=== PATIENT | female | born 1955 | race Caucasian/White ===

== ENCOUNTER 2020-01-10 11:25 | Emergency (ER) | payer MEDICARE, OTHER ==
[~2020-01-10] VITALS: Ht 170.2 cm; Wt 93.0 kg
[~2020-01-10 11:25] MED LIST: ALBU8.5H8 INH; AMLO10TA13 PO; DESV100T PO; DIVA-74 PO; FENO134C PO; OMEP40CA13 PO; ONDA8TAB6 PO; OXYB10TA4 PO; OXYGEN; PER10325T PO; RANI-366 PO; ZOLP5TAB8 PO
[2020-01-10 11:54] VITALS: BP 146/75
== END 2020-01-10 13:57 | disposition home or self-care (01) ==
LOC: ER 11:26
DX: M25.561 Pain in right knee (principal); E78.00 Pure hypercholesterolemia, unspecified; I10 Essential (primary) hypertension; J43.9 Emphysema, unspecified; G89.29 Other chronic pain; F41.9 Anxiety disorder, unspecified; F32.9 Major depressive disorder, single episode, unspecified; Z90.49 Acquired absence of other specified parts of digestive tract; Z90.710 Acquired absence of both cervix and uterus; Z88.0 Allergy status to penicillin; Z88.2 Allergy status to sulfonamides; Z88.8 Allergy status to other drugs, medicaments and biological substances; Z79.899 Other long term (current) drug therapy
CPT/HCPCS: 73564; 99284

== ENCOUNTER 2020-11-09 09:14 | Day surgery (SDC) | payer MEDICARE, MEDICAID ==
[2020-11-09] VITALS (8 sets, daily range): BP systolic 106–148; BP diastolic 70–103
[~2020-11-09] VITALS: Ht 170.2 cm; Wt 102.9 kg
[~2020-11-09 09:14] MED LIST changes: -ALBU8.5H8 INH; +AMIT25TA9 PO; -AMLO10TA13 PO; +BUPR1TAB45 PO; +CYCL-1 PO; -DESV100T PO; +DICL100G30 TOP; -DIVA-74 PO; -FENO134C PO; +FERR324T2 PO; +GABA300C PO; +KEN0.1O TOP; -ONDA8TAB6 PO; -OXYB10TA4 PO; -OXYGEN; -PER10325T PO; -RANI-366 PO; +TIOT4MIS3 PO; -ZOLP5TAB8 PO
[2020-11-09] MEDS ORDERED: albumin 25% 100mL bottle x 1 IV PRN (09:50)
[2020-11-09] MEDS ORDERED: POTA20PA40 PO (10:05)
[2020-11-09] MEDS ORDERED: HYDR-3972 PO (10:05)
[2020-11-09] MEDS ORDERED: ASPI-1265 PO (10:05)
[2020-11-09] MEDS ORDERED: PREG150C PO (10:05)
[2020-11-09] MEDS ORDERED: DULO-31 PO (10:05)
[2020-11-09] MEDS ORDERED: PANT-47 PO (10:05)
[2020-11-09] MEDS ORDERED: ROPI3TAB PO (10:05)
[2020-11-09] MEDS ORDERED: FURO-150 PO (10:05)
[2020-11-09] MEDS ORDERED: LYR75C PO (10:05)
[2020-11-09] MEDS ORDERED: LEVO50TA PO (10:05)
[2020-11-09] MEDS ORDERED: CYCL-1 PO (10:05)
[2020-11-09] MEDS ORDERED: PRED1TAB PO (10:05)
[2020-11-09 11:04] LABS: GLUCOSE,BODY FLUID 121 MG/DL; LDH,BODY FLUID 219 U/L; TOTAL PROTEIN,BODY FLUID 4.8 G/DL
[2020-11-09 11:19] LABS: BASOPHILS,BODY FLUID 1 %; LYMPHOCYTES,BODY FLUID 80 %; MONOCYTES,BODY FLUID 15 %; NEUTROPHILS,BODY FLUID 4 %
[2020-11-09 11:21] LABS: BF RBC COUNT 2350 /CU MM; BF WBC COUNT 1375 /CU MM (0-1000); BFAPPEAR CLOUDY; BFCOLOR YELLOW; BFVOLUME 60 ML
[2020-11-09] MEDS ORDERED: pneumococcal 23-VAL P-sac vacc 25 mcg/0.5ml vial IMVAC ONE (11:35)
== END 2020-11-09 12:45 | disposition home or self-care (01) ==
LOC: SSTAY O 09:14
PROVIDERS: ATTEND Radiology Vascular & Interventional Radiology
DX: J90 Pleural effusion, not elsewhere classified (principal); G89.29 Other chronic pain; J44.9 Chronic obstructive pulmonary disease, unspecified; I50.31 Acute diastolic (congestive) heart failure; E87.1 Hypo-osmolality and hyponatremia; Z87.440 Personal history of urinary (tract) infections; Z90.10 Acquired absence of unspecified breast and nipple; Z98.890 Other specified postprocedural states; F17.210 Nicotine dependence, cigarettes, uncomplicated; Z88.0 Allergy status to penicillin; Z88.5 Allergy status to narcotic agent; Z88.2 Allergy status to sulfonamides
CPT/HCPCS: 32555; 36415; 71045; 82945; 83615; 84157; 87070; 89051

== ENCOUNTER 2020-12-30 08:12 | Day surgery (SDC) | payer MEDICARE, MEDICAID ==
[~2020-12-30] VITALS: Ht 170.2 cm; Wt 103.1 kg
[~2020-12-30 08:12] MED LIST changes: -AMIT25TA9 PO; +ASPI-1265 PO; -BUPR1TAB45 PO; -DICL100G30 TOP; +DULO-31 PO; -FERR324T2 PO; +FURO-150 PO; -GABA300C PO; +HYDR-3972 PO; -KEN0.1O TOP; +LEVO50TA PO; +LYR75C PO; -OMEP40CA13 PO; +PANT-47 PO; +POTA20PA40 PO; +PRED1TAB PO; +PREG150C PO; +ROPI3TAB PO
[2020-12-30 08:50] VITALS: BP 99/59
[2020-12-30] MEDS ORDERED: albumin 25% 100mL bottle x 1 IV PRN (08:50)
[2020-12-30] MEDS ORDERED: ONDA8TAB13 PO (08:59)
[2020-12-30] MEDS ORDERED: ANAS1TAB24 PO (08:59)
[2020-12-30] MEDS ORDERED: ABEM100T PO (08:59)
[2020-12-30] MEDS ORDERED: DOCU100C42 PO (08:59)
[2020-12-30] MEDS ORDERED: CHOL20002 PO (08:59)
[2020-12-30 10:13] VITALS: BP_SYST 103
[2020-12-30 10:26] VITALS: BP 104/65
[2020-12-30 10:28] VITALS: BP 132/63
[2020-12-30 10:43] VITALS: BP 135/74
[2020-12-30 10:58] VITALS: BP 132/74
== END 2020-12-30 11:14 | disposition home or self-care (01) ==
LOC: SSTAY O 08:12
PROVIDERS: ATTEND Radiology Vascular & Interventional Radiology
DX: J90 Pleural effusion, not elsewhere classified (principal); J44.9 Chronic obstructive pulmonary disease, unspecified; G89.29 Other chronic pain; E87.1 Hypo-osmolality and hyponatremia; Z87.440 Personal history of urinary (tract) infections; I50.30 Unspecified diastolic (congestive) heart failure; Z88.0 Allergy status to penicillin; Z88.8 Allergy status to other drugs, medicaments and biological substances; Z88.5 Allergy status to narcotic agent; Z79.899 Other long term (current) drug therapy; Z79.82 Long term (current) use of aspirin; Z85.3 Personal history of malignant neoplasm of breast
CPT/HCPCS: 32555

== ENCOUNTER 2021-01-18 08:38 | Day surgery (SDC) | payer MEDICARE, MEDICAID ==
[2021-01-18] VITALS (8 sets, daily range): BP systolic 123–147; BP diastolic 59–81
[~2021-01-18] VITALS: Ht 170.2 cm; Wt 104.3 kg
[~2021-01-18 08:38] MED LIST changes: +ABEM100T PO; +ANAS1TAB24 PO; +CHOL20002 PO; +DOCU100C42 PO; +ONDA8TAB13 PO
[2021-01-18] MEDS ORDERED: albumin 25% 100mL bottle x 1 IV PRN (09:10)
== END 2021-01-18 10:45 | disposition home or self-care (01) ==
LOC: SSTAY O 08:38
PROVIDERS: ATTEND Radiology Vascular & Interventional Radiology
DX: J90 Pleural effusion, not elsewhere classified (principal); J44.9 Chronic obstructive pulmonary disease, unspecified; G89.29 Other chronic pain; I50.31 Acute diastolic (congestive) heart failure; E87.1 Hypo-osmolality and hyponatremia; F17.210 Nicotine dependence, cigarettes, uncomplicated; Z85.3 Personal history of malignant neoplasm of breast; Z87.440 Personal history of urinary (tract) infections; Z90.10 Acquired absence of unspecified breast and nipple; Z98.890 Other specified postprocedural states
CPT/HCPCS: 32555

== ENCOUNTER 2021-02-18 04:36 | Emergency (ER) | payer MEDICARE, MEDICAID ==
[~2021-02-18] VITALS: Ht 170.2 cm; Wt 105.0 kg
[2021-02-18] MEDS ORDERED: fentaNYL/PF 50MCG/1 ML 2ML syringe IV ONE ×2 (05:35→06:05)
[2021-02-18] MEDS ORDERED: morphine 4 MG/ML inj SYRINge IV ONE (06:40)
[2021-02-18] MEDS ORDERED: albuterol 2.5 MG/3 ML nebule NEB ONE (06:40)
[2021-02-18] MEDS ORDERED: propofol 1000mg/100ml bottle 100 ML IV PRN (06:55)
[2021-02-18 07:40] LABS: BASOPHILS # (AUTO) 0.1 X10'3 (0-0.2); BASOPHILS % (AUTO) 0.7 % (0-1); EOSINOPHILS # (AUTO) 0.1 X10'3 (0-0.9); EOSINOPHILS % (AUTO) 1.3 % (0-6); HEMATOCRIT 36.1 % (35.0-45.0); HEMOGLOBIN 11.5 g/dl (12.0-16.0); LYMPHOCYTES % (AUTO) 18.7 % (21-51); MEAN CORPUSCULAR HEMOGLOBIN 26.9 PG (27.0-31.0); MEAN CORPUSCULAR HGB CONC 31.8 g/dL (33.0-36.5); MEAN CORPUSCULAR VOLUME 84.3 FL (78-98); MEAN PLATELET VOLUME 7.7 FL (7.4-10.4); MONOCYTES # (AUTO) 0.5 X10'3 (0-0.9); MONOCYTES % (AUTO) 4.6 % (2-12); NEUTROPHILS % (AUTO) 74.7 % (42-75); PLATELET COUNT 275 X10'3 (140-440); RED BLOOD COUNT 4.28 X10'6 (4.20-5.60); RED CELL DISTRIBUTION WIDTH 22.3 % (11.5-14.5); WHITE BLOOD COUNT 10.7 X10'3 (4.5-11.0)
[2021-02-18 07:50] LABS: PARTIAL THROMBOPLASTIN TIME 26 SECONDS (22-32)
[2021-02-18 07:55] LABS: ALANINE AMINOTRANSFERASE 12 U/L (12-78); ALBUMIN 2.8 G/DL (3.4-5.0); ALBUMIN/GLOBULIN RATIO 0.6 (1.1-1.5); ALKALINE PHOSPHATASE 138 IU/L (46-116); ANION GAP 4 (8-16); ASPARTATE AMINO TRANSFERASE 12 U/L (10-37); BILIRUBIN,TOTAL 0.3 MG/DL (0.1-1.0); BLOOD UREA NITROGEN 11 MG/DL (7-18); BUN/CREATININE RATIO 11.1 (6.6-38.0); CALCIUM 8.9 MG/DL (8.5-10.1); CHLORIDE 101 MMOL/L (99-107); CREATININE 0.99 MG/DL (0.40-0.90); GLUCOSE 84 MG/DL (70-104); POTASSIUM 4.3 MMOL/L (3.5-5.1); SODIUM 141 MMOL/L (135-145); TOTAL CARBON DIOXIDE 36.1 MMOL/L (24-32); TOTAL PROTEIN 7.8 G/DL (6.4-8.2); eGFR 57 ML/MIN
[2021-02-18 08:59] LABS: ANISOCYTOSIS 3+; PLATELET ESTIMATE NORMAL; POLYCHROMASIA FEW; STOMATOCYTES 1+
--- NOTE | 2021-02-18 10:26 | NUR ---
pt back from ct
[2021-02-18 11:06] VITALS: BP 136/68
--- NOTE | 2021-02-18 12:05 | NUR ---
transport eta 15 minutes.
[2021-02-18] MEDS ORDERED: HYDROcodone/acetaminophen 10/325mg tab PO ONE (12:25)
== END 2021-02-18 12:44 | disposition home or self-care (01) ==
LOC: ER 04:37
DX: S82.851A Displaced trimalleolar fracture of right lower leg, initial encounter for closed fracture (principal); Z20.822 Contact with and (suspected) exposure to COVID-19; M25.571 Pain in right ankle and joints of right foot; I11.0 Hypertensive heart disease with heart failure; I50.9 Heart failure, unspecified; E78.00 Pure hypercholesterolemia, unspecified; J43.9 Emphysema, unspecified; G89.29 Other chronic pain; F41.9 Anxiety disorder, unspecified; F17.200 Nicotine dependence, unspecified, uncomplicated; Z86.2 Personal history of diseases of the blood and blood-forming organs and certain disorders involving the immune mechanism; Z87.440 Personal history of urinary (tract) infections; Z85.9 Personal history of malignant neoplasm, unspecified; Z90.49 Acquired absence of other specified parts of digestive tract; Z90.710 Acquired absence of both cervix and uterus; Z88.0 Allergy status to penicillin; Z88.5 Allergy status to narcotic agent; Z88.1 Allergy status to other antibiotic agents; Z88.8 Allergy status to other drugs, medicaments and biological substances; Z79.82 Long term (current) use of aspirin; Z79.899 Other long term (current) drug therapy; X58.XXXA Exposure to other specified factors, initial encounter; Y93.89 Activity, other specified; Y92.89 Other specified places as the place of occurrence of the external cause; Y99.8 Other external cause status
CPT/HCPCS: 27818; 36415; 71045; 73600; 73610; 73700; 80053; 85008; 85025; 85610; 85730; 87635; 93005; 94640; 94799; 96374; 96375; 96376; 99152; 99285; C9803; J2270; J3010; 94760

== ENCOUNTER 2021-02-21 09:56 | Inpatient (IN) | payer MEDICARE, MEDICAID ==
[~2021-02-21] VITALS: Ht 170.2 cm; Wt 106.8 kg
[2021-02-21 12:05] LABS: BASOPHILS # (AUTO) 0.1 X10'3 (0-0.2); BASOPHILS % (AUTO) 0.7 % (0-1); EOSINOPHILS # (AUTO) 0.2 X10'3 (0-0.9); HEMATOCRIT 30.4 % (35.0-45.0); HEMOGLOBIN 9.6 g/dl (12.0-16.0); LYMPHOCYTES # (AUTO) 1.9 X10'3 (1.1-4.8); LYMPHOCYTES % (AUTO) 23.7 % (21-51); MEAN CORPUSCULAR HEMOGLOBIN 27.4 PG (27.0-31.0); MEAN CORPUSCULAR HGB CONC 31.6 g/dL (33.0-36.5); MEAN CORPUSCULAR VOLUME 86.5 FL (78-98); MEAN PLATELET VOLUME 7.8 FL (7.4-10.4); MONOCYTES # (AUTO) 0.6 X10'3 (0-0.9); MONOCYTES % (AUTO) 7.7 % (2-12); NEUTROPHILS # (AUTO) 5.4 X10'3 (1.8-7.7); NEUTROPHILS % (AUTO) 65.9 % (42-75); PLATELET COUNT 253 X10'3 (140-440); RED BLOOD COUNT 3.52 X10'6 (4.20-5.60); RED CELL DISTRIBUTION WIDTH 21.1 % (11.5-14.5); WHITE BLOOD COUNT 8.2 X10'3 (4.5-11.0)
[2021-02-21 12:20] LABS: ALANINE AMINOTRANSFERASE 8 U/L (12-78); ALBUMIN 2.3 G/DL (3.4-5.0); ALBUMIN/GLOBULIN RATIO 0.5 (1.1-1.5); ALKALINE PHOSPHATASE 103 IU/L (46-116); ANION GAP 3 (8-16); ASPARTATE AMINO TRANSFERASE 11 U/L (10-37); BILIRUBIN,TOTAL 0.3 MG/DL (0.1-1.0); BLOOD UREA NITROGEN 11 MG/DL (7-18); BUN/CREATININE RATIO 11.1 (6.6-38.0); CALCIUM 8.3 MG/DL (8.5-10.1); CHLORIDE 98 MMOL/L (99-107); CREATININE 0.99 MG/DL (0.40-0.90); GLUCOSE 79 MG/DL (70-104); SODIUM 140 MMOL/L (135-145); TOTAL CARBON DIOXIDE 38.6 MMOL/L (24-32); TOTAL PROTEIN 7.1 G/DL (6.4-8.2); eGFR 57 ML/MIN
[2021-02-21 12:39] LABS: ANISOCYTOSIS 3+; HYPOCHROMASIA 1+; PLATELET ESTIMATE NORMAL; POLYCHROMASIA FEW; STOMATOCYTES 1+
[2021-02-21] MEDS ORDERED: potassium Cl 20 mEq SR tablet PO PRN ×2 (12:55)
[2021-02-21] MEDS ORDERED: magnesium 4gm in 100ml NS 100 ML IV PRN (12:55)
[2021-02-21] MEDS ORDERED: HYDROcodone/acetaminophen 5mg/325mg tablet PO PRN (12:55)
[2021-02-21] MEDS ORDERED: magnesium 2GM in 50ml NS 50 ML IV PRN (12:55)
[2021-02-21] MEDS ORDERED: ondansetron/PF 4mg/2ml inj IV PRN (12:55)
[2021-02-21] MEDS ORDERED: potassium Cl 40MEQ/1/2NS 520ml 520 ML IV PRN ×2 (12:55)
[2021-02-21] MEDS ORDERED: acetaminophen 325mg tablet PO PRN (12:55)
[2021-02-21] MEDS ORDERED: FLUT100D IH (13:21)
[2021-02-21] MEDS ORDERED: NICO-687 TOP (13:21)
[2021-02-21] MEDS ORDERED: ALBU17AE26 IH (13:21)
[2021-02-21] MEDS ORDERED: non-formulary drug (Ondansetron (Ondansetron Odt) 1 TAB) PO PRN (14:40)
[2021-02-21] MEDS: ipratropium/albuterol 3ml nebule NEB PRN (15:10)
[2021-02-21] MEDS: HYDROcodone/acetaminophen 10/325mg tab PO PRN (15:58)
--- NOTE | 2021-02-21 16:30 | NUR ---
Pt placed on hospital bed.
--- NOTE | 2021-02-21 18:56 | NUR ---
pt ate her meal. Pt c/o muscle spasms in legs. pt Had oxygen off upon RN arrival at 85% and now oxygen on and 95 % with 4LNC. Room tidied.
[2021-02-21] MEDS: cyclobenzaprine 10mg tablet PO PRN (19:02)
--- NOTE | 2021-02-21 19:52 | NUR ---
Received report from ASSISTANT PROGRAM MANAGERRAFY Hou and Halley. Pt. to follow shortly.
[2021-02-21] MEDS: K and/or MAG REPLACEMENT MC SCH (20:00)
[2021-02-21] MEDS: enoxaparin 40mg/0.4ml syringe SQ SCH (20:00)
[2021-02-21] MEDS ORDERED: ABEMACICLIB 100 MG PO SCH (20:00)
--- NOTE | 2021-02-21 20:00 | NUR ---
Patient arrived to floor via hospital bed from ER department. A&Ox4 and in no apparent distress at this time. Patient situated in room and VS taken
[2021-02-21 20:10] VITALS: BP 148/76
[2021-02-21] MEDS: albuterol 2.5 MG/3 ML nebule NEB PRN (20:30)
[2021-02-21] MEDS: budesonide 0.5mg/2ml UD nebule IH SCH (20:30)
[2021-02-21 22:00] VITALS: BP 120/53
--- NOTE | 2021-02-21 22:00 | NUR ---
Patient advised that her sister will be bringing in her cancer drugs in the morning for her.
[2021-02-21] MEDS: cholecalciferol (vitamin D3) 1,000 unit (25mcg) tablet PO SCH (22:03)
[2021-02-21] MEDS: pregabalin 75mg capsule PO SCH (22:03)
[2021-02-21] MEDS: ROPINIRole 1mg tablet PO SCH (22:03)
[2021-02-21] MEDS: furosemide 20MG tablet PO SCH (22:06)
[2021-02-21] MEDS: HYDROmorphone inj. 0.5 MG/0.5 ML DISP.SYRIN IV PRN (22:17)
[2021-02-22] VITALS (18 sets, daily range): BP systolic 99–173; BP diastolic 50–98
[2021-02-22] MEDS: cyclobenzaprine 10mg tablet PO PRN ×2 (00:19→22:06)
[2021-02-22] MEDS: HYDROcodone/acetaminophen 10/325mg tab PO PRN ×4 (00:19→21:50)
--- NOTE | 2021-02-22 00:39 | NUR ---
Patient c/o bladder distension. Bladder scan reveals >921. New order for perez catheter to be placed.
--- NOTE | 2021-02-22 01:11 | NUR ---
Johnson cath placed and immediately started draining 1150 cc yellow urine. Patient tolerated procedure well.
[2021-02-22] MEDS: mag hydrox/Alum hydrox/simeth 30ml oral suspension PO PRN (03:50)
[2021-02-22 06:11] LABS: BASOPHILS # (AUTO) 0.1 X10'3 (0-0.2); BASOPHILS % (AUTO) 0.9 % (0-1); EOSINOPHILS # (AUTO) 0.1 X10'3 (0-0.9); EOSINOPHILS % (AUTO) 1.5 % (0-6); HEMATOCRIT 31.7 % (35.0-45.0); HEMOGLOBIN 10.3 g/dl (12.0-16.0); LYMPHOCYTES # (AUTO) 1.1 X10'3 (1.1-4.8); LYMPHOCYTES % (AUTO) 13.3 % (21-51); MEAN CORPUSCULAR HGB CONC 32.4 g/dL (33.0-36.5); MEAN CORPUSCULAR VOLUME 86.5 FL (78-98); MONOCYTES # (AUTO) 0.6 X10'3 (0-0.9); MONOCYTES % (AUTO) 6.9 % (2-12); NEUTROPHILS # (AUTO) 6.5 X10'3 (1.8-7.7); NEUTROPHILS % (AUTO) 77.4 % (42-75); PLATELET COUNT 242 X10'3 (140-440); RED BLOOD COUNT 3.66 X10'6 (4.20-5.60); RED CELL DISTRIBUTION WIDTH 21.3 % (11.5-14.5); WHITE BLOOD COUNT 8.3 X10'3 (4.5-11.0)
[2021-02-22 06:30] LABS: ALANINE AMINOTRANSFERASE 11 U/L (12-78); ALBUMIN 2.4 G/DL (3.4-5.0); ALBUMIN/GLOBULIN RATIO 0.5 (1.1-1.5); ALKALINE PHOSPHATASE 120 IU/L (46-116); ANION GAP 7 (8-16); ASPARTATE AMINO TRANSFERASE 13 U/L (10-37); BILIRUBIN,TOTAL 0.4 MG/DL (0.1-1.0); BLOOD UREA NITROGEN 10 MG/DL (7-18); BUN/CREATININE RATIO 9.9 (6.6-38.0); CHLORIDE 101 MMOL/L (99-107); CREATININE 1.01 MG/DL (0.40-0.90); GLUCOSE 110 MG/DL (70-104); MAGNESIUM 1.7 MG/DL (1.5-2.4); SODIUM 142 MMOL/L (135-145); TOTAL PROTEIN 7.5 G/DL (6.4-8.2); eGFR 55 ML/MIN
--- NOTE | 2021-02-22 06:30 | NUR ---
Patient in room TEA 354A. I have received report from RAFY MICHAEL and had the opportunity to ask questions and assume patient care.
[2021-02-22] MEDS: ipratropium/albuterol 3ml nebule NEB PRN (07:29)
[2021-02-22] MEDS: budesonide 0.5mg/2ml UD nebule IH SCH ×2 (07:29→19:17)
[2021-02-22] MEDS ORDERED: pregabalin 75mg capsule PO SCH (08:00)
[2021-02-22] MEDS ORDERED: STIOLTO RESPIMAT INHAL PO SCH (08:00)
[2021-02-22] MEDS: K and/or MAG REPLACEMENT MC SCH ×2 (08:00→20:00)
[2021-02-22] MEDS: duloxetine 30mg CAPSULE.DR PO SCH (09:51)
[2021-02-22] MEDS: aspirin 81mg tab.chew PO SCH (09:51)
[2021-02-22] MEDS: levoTHYROXINE 25mcg tablet PO SCH (09:51)
[2021-02-22] MEDS: furosemide 20MG tablet PO SCH ×2 (09:52→21:43)
[2021-02-22] MEDS ORDERED: pneumococcal 23-VAL P-sac vacc 25 mcg/0.5ml vial IMVAC ONE (10:00)
[2021-02-22] MEDS: predniSONE 1 mg tablet PO SCH (10:01)
[2021-02-22] MEDS: cholecalciferol (vitamin D3) 1,000 unit (25mcg) tablet PO SCH ×2 (10:02→21:43)
[2021-02-22] MEDS: pantoprazole 40mg Tablet.DR PO SCH (10:02)
[2021-02-22] MEDS: nicotine 14mg patch - 24hr TD SCH (10:02)
[2021-02-22] MEDS: anastrozole 1 MG tablet PO SCH (10:03)
[2021-02-22] MEDS ORDERED: enalaprilat dihydrate 2.5mg/2ml vial IV PRN (14:35)
[2021-02-22] MEDS ORDERED: hydrALAZINE 20mg/ml inj. IV PRN (14:35)
[2021-02-22] MEDS ORDERED: HYDROmorphone/PF 0.2 MG/ML SYRINGE IV PRN ×4 (14:35→17:15)
[2021-02-22] MEDS ORDERED: ondansetron/PF 4mg/2ml inj IV PRN ×2 (14:35→17:15)
[2021-02-22] MEDS ORDERED: fentaNYL/PF 50MCG/1 ML 2ML syringe IV PRN ×2 (14:35)
[2021-02-22] MEDS ORDERED: ringers solution, lacted 1,000 ML IV SCH ×2 (14:35→17:15)
[2021-02-22] MEDS ORDERED: ROPIVAcaine 0.5% (5mg/ml) 30ml vial ONE ×2 (14:37)
[2021-02-22] MEDS ORDERED: etomidate 2mg/ml inj. ONE (14:37)
[2021-02-22] MEDS ORDERED: succinylcholine 20mg/ml inj IV ONE (14:37)
[2021-02-22] MEDS ORDERED: cloNIDine hcl/PF 100mcg/ml inj ONE (15:35)
[2021-02-22] MEDS ORDERED: sevoflurane 250ml liquid IH ONE (15:40)
[2021-02-22] MEDS ORDERED: midazolam 1 mg/ML 2ml injection ONE (15:41)
[2021-02-22] MEDS ORDERED: fentaNYL/PF 50MCG/1 ML 2ML syringe ONE (15:41)
[2021-02-22] MEDS ORDERED: BUPIVAcaine 0.5% inj/PF 30 ML ONE (16:50)
[2021-02-22] MEDS ORDERED: vancomycin 1,000mg inj ONE ×2 (16:57)
[2021-02-22] MEDS ORDERED: labetalol 20mg/4ml (5mg/ml) syringe IV PRN (17:15)
[2021-02-22] MEDS ORDERED: meperidine/PF 25mg/ml syringe IV PRN (17:15)
--- NOTE | 2021-02-22 17:45 | NUR ---
Received from OR via BED, accompanied by Anesthesiologist DR BAUTISTA and report given by Anesthesiologist. PT DROWSY, SOMEWHAT CONFUSED, PT NOT SURE OF WHERE SHE IS, RIGHT ANKLE W/JOHANNA WRAP COVERING DRSG/SPLINT, TOES PWD, CHEF KITCHEN MANAGER 1-2 SECONDS. PANDEY CATHETER TO GRAVITY DRAINAGE. PT W/SHIVERS AND C/O PAIN TO LEFT FOOT, 25 MG DEMEROL GIVEN FOR BOTH W/IMPROVEMENT IN PAIN AND SHIVERS. PAGED RT FOR BREATHING TX. Addendum: 02/22/21 at 2027 by Juany Qureshi RN Amended: Links added.
--- NOTE | 2021-02-22 18:34 | NUR ---
Patient in room TEA 354. I have received report from Radha HILLMAN and had the opportunity to ask questions and assume patient care.
--- NOTE | 2021-02-22 18:34 | NUR ---
Problems reprioritized. Patient report given, questions answered & plan of care reviewed with RAFY HOANG.
[2021-02-22] MEDS: albuterol 2.5 MG/3 ML nebule NEB PRN (19:17)
--- NOTE | 2021-02-22 19:45 | NUR ---
Report called to receiving nurse. Transferred via BED ON , 5 RINGS FROM OR IN PTS CHART PLACED ON PTS FINGERS AFTER TAKING PT TO ROOM 354A, 2 EARRINGS PLACED IN PTS PURSE AT BEDSIDE, RECEIVING RN AT BEDSIDE, BLL, CALL LIGHT GIVEN, SIDE RAILS UP X 2. Special Issues communicated to receiving nurse. Addendum: 02/22/21 at 2031 by Juany Qureshi RN Amended: Links added.
[2021-02-22] MEDS: enoxaparin 40mg/0.4ml syringe SQ SCH (21:42)
[2021-02-22] MEDS: ROPINIRole 1mg tablet PO SCH (21:43)
[2021-02-22] MEDS: pregabalin 75mg capsule PO SCH (21:44)
[2021-02-22] MEDS: ABEMACICLIB 100 MG PO SCH (22:06)
[2021-02-23] VITALS (11 sets, daily range): BP systolic 107–151; BP diastolic 52–77
[2021-02-23] MEDS: HYDROmorphone inj. 0.5 MG/0.5 ML DISP.SYRIN IV PRN ×3 (01:05→19:16)
[2021-02-23] MEDS: HYDROcodone/acetaminophen 10/325mg tab PO PRN ×2 (05:25→10:12)
[2021-02-23] MEDS: ABEMACICLIB 100 MG PO SCH ×2 (05:26→17:00)
--- NOTE | 2021-02-23 07:04 | NUR ---
Patient in room TEA 354. I have received report from RAFY Clark and had the opportunity to ask questions and assume patient care.
--- NOTE | 2021-02-23 07:34 | NUR ---
Problems reprioritized. Patient report given, questions answered & plan of care reviewed with Cassandra HILLMAN.
[2021-02-23] MEDS: albuterol 2.5 MG/3 ML nebule NEB PRN (07:39)
[2021-02-23] MEDS: budesonide 0.5mg/2ml UD nebule IH SCH ×2 (07:39→20:00)
[2021-02-23] MEDS: K and/or MAG REPLACEMENT MC SCH ×2 (08:00→21:14)
[2021-02-23 08:20] LABS: BASOPHILS % (AUTO) 0.6 % (0-1); EOSINOPHILS # (AUTO) 0.1 X10'3 (0-0.9); EOSINOPHILS % (AUTO) 1.2 % (0-6); HEMATOCRIT 28.8 % (35.0-45.0); HEMOGLOBIN 9.2 g/dl (12.0-16.0); LYMPHOCYTES # (AUTO) 1.1 X10'3 (1.1-4.8); LYMPHOCYTES % (AUTO) 14.4 % (21-51); MEAN CORPUSCULAR HEMOGLOBIN 27.2 PG (27.0-31.0); MEAN CORPUSCULAR HGB CONC 31.8 g/dL (33.0-36.5); MEAN CORPUSCULAR VOLUME 85.7 FL (78-98); MEAN PLATELET VOLUME 7.9 FL (7.4-10.4); MONOCYTES # (AUTO) 0.5 X10'3 (0-0.9); MONOCYTES % (AUTO) 6.5 % (2-12); NEUTROPHILS # (AUTO) 5.9 X10'3 (1.8-7.7); NEUTROPHILS % (AUTO) 77.3 % (42-75); PLATELET COUNT 241 X10'3 (140-440); RED BLOOD COUNT 3.37 X10'6 (4.20-5.60); RED CELL DISTRIBUTION WIDTH 21.8 % (11.5-14.5); WHITE BLOOD COUNT 7.6 X10'3 (4.5-11.0)
[2021-02-23] MEDS: levoTHYROXINE 25mcg tablet PO SCH (08:35)
[2021-02-23] MEDS: aspirin 81mg tab.chew PO SCH (08:35)
[2021-02-23] MEDS: furosemide 20MG tablet PO SCH ×2 (08:35→21:13)
[2021-02-23] MEDS: duloxetine 30mg CAPSULE.DR PO SCH (08:35)
[2021-02-23] MEDS: pantoprazole 40mg Tablet.DR PO SCH (08:35)
[2021-02-23] MEDS: predniSONE 1 mg tablet PO SCH (08:35)
[2021-02-23] MEDS: nicotine 14mg patch - 24hr TD SCH (08:36)
[2021-02-23] MEDS: cholecalciferol (vitamin D3) 1,000 unit (25mcg) tablet PO SCH ×2 (08:36→21:12)
[2021-02-23] MEDS: anastrozole 1 MG tablet PO SCH (08:40)
[2021-02-23 09:02] LABS: ALANINE AMINOTRANSFERASE 8 U/L (12-78); ALBUMIN 2.2 G/DL (3.4-5.0); ALBUMIN/GLOBULIN RATIO 0.5 (1.1-1.5); ALKALINE PHOSPHATASE 101 IU/L (46-116); ANION GAP 2 (8-16); ASPARTATE AMINO TRANSFERASE 19 U/L (10-37); BILIRUBIN,TOTAL 0.4 MG/DL (0.1-1.0); BLOOD UREA NITROGEN 10 MG/DL (7-18); BUN/CREATININE RATIO 9.9 (6.6-38.0); CALCIUM 8.1 MG/DL (8.5-10.1); CHLORIDE 100 MMOL/L (99-107); CREATININE 1.01 MG/DL (0.40-0.90); GLUCOSE 128 MG/DL (70-104); MAGNESIUM 1.6 MG/DL (1.5-2.4); POTASSIUM 3.5 MMOL/L (3.5-5.1); SODIUM 141 MMOL/L (135-145); TOTAL CARBON DIOXIDE 38.8 MMOL/L (24-32); eGFR 55 ML/MIN
[2021-02-23 10:04] LABS: PLATELET ESTIMATE NORMAL
[2021-02-23 10:05] LABS: ANISOCYTOSIS 3+
[2021-02-23 10:07] LABS: HYPOCHROMASIA 1+; STOMATOCYTES 2+
[2021-02-23] MEDS ORDERED: HYDROcodone/acetaminophen 10/325mg tab PO PRN (13:45)
[2021-02-23] MEDS ORDERED: loperamide 2mg capsule PO PRN (13:45)
[2021-02-23] MEDS ORDERED: loperamide 2mg capsule PO ONE (13:45)
[2021-02-23] MEDS ORDERED: oxyCODONE IR 5mg (immed. release) tablet PO ONE (13:50)
[2021-02-23] MEDS ORDERED: oxyCODONE IR 5mg (immed. release) tablet PO PRN (13:50)
--- NOTE | 2021-02-23 18:32 | NUR ---
Problems reprioritized. Patient report given, questions answered & plan of care reviewed with RAFY Lynn.
--- NOTE | 2021-02-23 18:50 | NUR ---
Problems reprioritized. Patient report given, questions answered & plan of care reviewed with Fay RN.
--- NOTE | 2021-02-23 19:30 | NUR ---
pt denies SOB; unable to lie flat; states this is her norm Addendum: 02/24/21 at 0311 by Juliana Beltran RN Amended: Links added.
[2021-02-23] MEDS: ROPINIRole 1mg tablet PO SCH (21:11)
[2021-02-23] MEDS: pregabalin 75mg capsule PO SCH (21:12)
[2021-02-23] MEDS: enoxaparin 40mg/0.4ml syringe SQ SCH (21:14)
[2021-02-23] MEDS: oxyCODONE IR 5mg (immed. release) tablet PO PRN (21:17)
[2021-02-24] VITALS: BP 134/58
[2021-02-24] MEDS: cyclobenzaprine 10mg tablet PO PRN ×4 (00:46→19:40)
[2021-02-24] MEDS: HYDROmorphone inj. 0.5 MG/0.5 ML DISP.SYRIN IV PRN (01:53)
[2021-02-24] MEDS: ABEMACICLIB 100 MG PO SCH ×2 (06:11→17:14)
--- NOTE | 2021-02-24 06:39 | NUR ---
Patient in room TEA 354. I have received report from RAFY Aponte and had the opportunity to ask questions and assume patient care.
--- NOTE | 2021-02-24 06:40 | NUR ---
Patient in room TEA 354. I have received report from RAFY Lynn and had the opportunity to ask questions and assume patient care.
[2021-02-24 07:00] VITALS: BP 123/39
[2021-02-24] MEDS ORDERED: IPRA3AMP9 NEB (07:27)
[2021-02-24] MEDS: K and/or MAG REPLACEMENT MC SCH ×2 (08:00→20:00)
[2021-02-24 08:04] LABS: BASOPHILS % (AUTO) 0.4 % (0-1); EOSINOPHILS # (AUTO) 0.1 X10'3 (0-0.9); EOSINOPHILS % (AUTO) 1.3 % (0-6); HEMATOCRIT 30.3 % (35.0-45.0); HEMOGLOBIN 9.8 g/dl (12.0-16.0); LYMPHOCYTES # (AUTO) 1.3 X10'3 (1.1-4.8); LYMPHOCYTES % (AUTO) 16.5 % (21-51); MEAN CORPUSCULAR HEMOGLOBIN 27.7 PG (27.0-31.0); MEAN CORPUSCULAR HGB CONC 32.3 g/dL (33.0-36.5); MEAN CORPUSCULAR VOLUME 85.9 FL (78-98); MEAN PLATELET VOLUME 8.1 FL (7.4-10.4); MONOCYTES # (AUTO) 0.6 X10'3 (0-0.9); MONOCYTES % (AUTO) 7.5 % (2-12); NEUTROPHILS # (AUTO) 5.8 X10'3 (1.8-7.7); NEUTROPHILS % (AUTO) 74.3 % (42-75); PLATELET COUNT 240 X10'3 (140-440); RED BLOOD COUNT 3.52 X10'6 (4.20-5.60); RED CELL DISTRIBUTION WIDTH 21.2 % (11.5-14.5); WHITE BLOOD COUNT 7.8 X10'3 (4.5-11.0)
[2021-02-24] MEDS: budesonide 0.5mg/2ml UD nebule IH SCH ×2 (08:14→21:38)
[2021-02-24] MEDS: albuterol 2.5 MG/3 ML nebule NEB PRN ×4 (08:15→21:38)
[2021-02-24] MEDS: predniSONE 1 mg tablet PO SCH (08:29)
[2021-02-24] MEDS: cholecalciferol (vitamin D3) 1,000 unit (25mcg) tablet PO SCH ×2 (08:29→19:40)
[2021-02-24] MEDS: oxyCODONE IR 5mg (immed. release) tablet PO PRN ×4 (08:29→22:59)
[2021-02-24] MEDS: levoTHYROXINE 25mcg tablet PO SCH (08:29)
[2021-02-24] MEDS: pantoprazole 40mg Tablet.DR PO SCH (08:29)
[2021-02-24] MEDS: furosemide 20MG tablet PO SCH ×2 (08:29→19:40)
[2021-02-24] MEDS: duloxetine 30mg CAPSULE.DR PO SCH (08:29)
[2021-02-24] MEDS: aspirin 81mg tab.chew PO SCH (08:30)
[2021-02-24] MEDS: nicotine 14mg patch - 24hr TD SCH (08:30)
[2021-02-24 08:32] LABS: ALANINE AMINOTRANSFERASE 14 U/L (12-78); ALBUMIN 2.4 G/DL (3.4-5.0); ALBUMIN/GLOBULIN RATIO 0.5 (1.1-1.5); ALKALINE PHOSPHATASE 116 IU/L (46-116); ANION GAP 4 (8-16); ASPARTATE AMINO TRANSFERASE 19 U/L (10-37); BILIRUBIN,TOTAL 0.4 MG/DL (0.1-1.0); BLOOD UREA NITROGEN 7 MG/DL (7-18); BUN/CREATININE RATIO 8.3 (6.6-38.0); CALCIUM 8.8 MG/DL (8.5-10.1); CHLORIDE 100 MMOL/L (99-107); CREATININE 0.84 MG/DL (0.40-0.90); GLUCOSE 95 MG/DL (70-104); MAGNESIUM 1.8 MG/DL (1.5-2.4); SODIUM 142 MMOL/L (135-145); TOTAL CARBON DIOXIDE 37.6 MMOL/L (24-32); TOTAL PROTEIN 7.4 G/DL (6.4-8.2); eGFR 68 ML/MIN
[2021-02-24] MEDS: anastrozole 1 MG tablet PO SCH (08:32)
[2021-02-24] MEDS ORDERED: pneumococcal 23-VAL P-sac vacc 25 mcg/0.5ml vial IMVAC ONE (10:00)
[2021-02-24 11:00] VITALS: BP 101/45
[2021-02-24 13:25] VITALS: BP 130/60
[2021-02-24 13:40] VITALS: BP 125/66
[2021-02-24] MEDS ORDERED: potassium Cl 20 mEq SR tablet PO PRN (13:40)
[2021-02-24 14:04] LABS: BFSOURCE RIGHT PLEURAL FLD
[2021-02-24] MEDS: potassium Cl 20 mEq SR tablet PO PRN ×2 (14:18→20:18)
[2021-02-24 15:28] LABS: GLUCOSE,BODY FLUID 103 MG/DL; LDH,BODY FLUID 145 U/L; TOTAL PROTEIN,BODY FLUID 4.1 G/DL
[2021-02-24 15:29] LABS: BFAPPEAR CLOUDY; BFCOLOR RED; LYMPHOCYTES,BODY FLUID 86 %; MONOCYTES,BODY FLUID 5 %; NEUTROPHILS,BODY FLUID 9 %
[2021-02-24 15:31] LABS: BF RBC COUNT 6625 /CU MM; BF WBC COUNT 61 /CU MM (0-1000); BFVOLUME 58 ML
[2021-02-24 17:20] LABS: ANISOCYTOSIS 3+; HYPOCHROMASIA 1+; LARGE PLATELETS FEW; PLATELET ESTIMATE NORMAL; POLYCHROMASIA 1+; ROULEAUX 1+
--- NOTE | 2021-02-24 18:32 | NUR ---
Patient in room TEA 360. I have received report from Cassandra HILLMAN and had the opportunity to ask questions and assume patient care.
[2021-02-24] MEDS: enoxaparin 40mg/0.4ml syringe SQ SCH (19:41)
--- NOTE | 2021-02-24 19:50 | NUR ---
Pt reports missing lower denture last seen by her last night. Pt says she wrapped it in tissue like at home. Room trash and bedding searched without finding it. Kitchen was notified to watch for it on trays.
[2021-02-24] MEDS: ROPINIRole 1mg tablet PO SCH (20:13)
[2021-02-24] MEDS: pregabalin 75mg capsule PO SCH (20:14)
[2021-02-25] VITALS: BP 127/53
[2021-02-25] MEDS: oxyCODONE IR 5mg (immed. release) tablet PO PRN ×4 (05:03→20:27)
[2021-02-25] MEDS: anastrozole 1 MG tablet PO SCH (05:04)
[2021-02-25] MEDS: ABEMACICLIB 100 MG PO SCH ×2 (05:15→16:27)
--- NOTE | 2021-02-25 05:32 | NUR ---
patient requested both chemo drugs at ths time checked with pharmacy ok to gve. patient appears stable at this time.medicated for pain 03/01.
--- NOTE | 2021-02-25 06:13 | NUR ---
Problems reprioritized. Patient report given, questions answered & plan of care reviewed with Shell HILLMAN.
--- NOTE | 2021-02-25 06:38 | NUR ---
Patient in room TEA 360. I have received report from Suzanne HILLMAN and had the opportunity to ask questions and assume patient care.
[2021-02-25 06:50] LABS: BASOPHILS % (AUTO) 0.7 % (0-1); EOSINOPHILS # (AUTO) 0.1 X10'3 (0-0.9); EOSINOPHILS % (AUTO) 1.7 % (0-6); HEMATOCRIT 29.7 % (35.0-45.0); HEMOGLOBIN 9.4 g/dl (12.0-16.0); LYMPHOCYTES # (AUTO) 1.4 X10'3 (1.1-4.8); LYMPHOCYTES % (AUTO) 19.1 % (21-51); MEAN CORPUSCULAR HEMOGLOBIN 27.4 PG (27.0-31.0); MEAN CORPUSCULAR HGB CONC 31.6 g/dL (33.0-36.5); MEAN CORPUSCULAR VOLUME 86.5 FL (78-98); MEAN PLATELET VOLUME 7.8 FL (7.4-10.4); MONOCYTES # (AUTO) 0.6 X10'3 (0-0.9); MONOCYTES % (AUTO) 8.5 % (2-12); PLATELET COUNT 266 X10'3 (140-440); RED BLOOD COUNT 3.43 X10'6 (4.20-5.60); RED CELL DISTRIBUTION WIDTH 20.9 % (11.5-14.5); WHITE BLOOD COUNT 7.1 X10'3 (4.5-11.0)
[2021-02-25 07:00] VITALS: BP 128/58
[2021-02-25 07:18] LABS: ALANINE AMINOTRANSFERASE 11 U/L (12-78); ALBUMIN 2.2 G/DL (3.4-5.0); ALBUMIN/GLOBULIN RATIO 0.4 (1.1-1.5); ALKALINE PHOSPHATASE 105 IU/L (46-116); ANION GAP 4 (8-16); ASPARTATE AMINO TRANSFERASE 15 U/L (10-37); BILIRUBIN,TOTAL 0.4 MG/DL (0.1-1.0); BLOOD UREA NITROGEN 10 MG/DL (7-18); BUN/CREATININE RATIO 10.6 (6.6-38.0); CALCIUM 9.1 MG/DL (8.5-10.1); CHLORIDE 102 MMOL/L (99-107); CREATININE 0.94 MG/DL (0.40-0.90); GLUCOSE 108 MG/DL (70-104); MAGNESIUM 1.9 MG/DL (1.5-2.4); POTASSIUM 4.6 MMOL/L (3.5-5.1); SODIUM 143 MMOL/L (135-145); TOTAL CARBON DIOXIDE 36.6 MMOL/L (24-32); TOTAL PROTEIN 7.3 G/DL (6.4-8.2); eGFR 60 ML/MIN
[2021-02-25] MEDS: K and/or MAG REPLACEMENT MC SCH ×2 (08:00→20:00)
[2021-02-25] MEDS: furosemide 20MG tablet PO SCH ×2 (08:07→19:37)
[2021-02-25] MEDS: cholecalciferol (vitamin D3) 1,000 unit (25mcg) tablet PO SCH ×2 (08:07→19:37)
[2021-02-25] MEDS: levoTHYROXINE 25mcg tablet PO SCH (08:07)
[2021-02-25] MEDS: nicotine 14mg patch - 24hr TD SCH (08:08)
[2021-02-25] MEDS: aspirin 81mg tab.chew PO SCH (08:08)
[2021-02-25] MEDS: duloxetine 30mg CAPSULE.DR PO SCH (08:08)
[2021-02-25] MEDS: pantoprazole 40mg Tablet.DR PO SCH (08:08)
[2021-02-25] MEDS: cyclobenzaprine 10mg tablet PO PRN ×2 (08:08→19:37)
[2021-02-25] MEDS: predniSONE 1 mg tablet PO SCH (08:08)
[2021-02-25] MEDS: albuterol 2.5 MG/3 ML nebule NEB PRN ×3 (08:19→18:37)
[2021-02-25] MEDS: budesonide 0.5mg/2ml UD nebule IH SCH ×2 (08:19→18:37)
[2021-02-25 11:00] VITALS: BP 111/58
--- NOTE | 2021-02-25 13:41 | NUR ---
PAGER ID: [phone] MESSAGE: Shanell Jensen 360A-Pt's called and stated Oncologist wanted some testing done here for pt since is actively on chemo. Please call dr Sharita Dexter oncologist [phone].The called rosalva canseco [phone].Thank you. Shell
[2021-02-25 18:00] VITALS: BP 110/48
--- NOTE | 2021-02-25 18:36 | NUR ---
Problems reprioritized. Patient report given, questions answered & plan of care reviewed with Deidre Jiang RN.
[2021-02-25] MEDS: enoxaparin 40mg/0.4ml syringe SQ SCH (19:38)
[2021-02-25] MEDS: ROPINIRole 1mg tablet PO SCH (20:24)
[2021-02-25] MEDS: pregabalin 75mg capsule PO SCH (20:25)
[2021-02-26] VITALS: BP 117/50
[2021-02-26] MEDS: ipratropium/albuterol 3ml nebule NEB PRN ×3 (03:54→19:43)
[2021-02-26] MEDS: oxyCODONE IR 5mg (immed. release) tablet PO PRN ×4 (04:02→18:57)
[2021-02-26] MEDS: ABEMACICLIB 100 MG PO SCH ×2 (05:00→17:54)
[2021-02-26 05:39] LABS: BASOPHILS # (AUTO) 0.1 X10'3 (0-0.2); BASOPHILS % (AUTO) 1.1 % (0-1); EOSINOPHILS # (AUTO) 0.1 X10'3 (0-0.9); EOSINOPHILS % (AUTO) 1.7 % (0-6); HEMOGLOBIN 9.6 g/dl (12.0-16.0); LYMPHOCYTES # (AUTO) 1.7 X10'3 (1.1-4.8); LYMPHOCYTES % (AUTO) 20.7 % (21-51); MEAN CORPUSCULAR HEMOGLOBIN 27.8 PG (27.0-31.0); MEAN CORPUSCULAR HGB CONC 32.2 g/dL (33.0-36.5); MEAN CORPUSCULAR VOLUME 86.3 FL (78-98); MEAN PLATELET VOLUME 8.2 FL (7.4-10.4); MONOCYTES # (AUTO) 0.6 X10'3 (0-0.9); MONOCYTES % (AUTO) 7.8 % (2-12); NEUTROPHILS # (AUTO) 5.6 X10'3 (1.8-7.7); NEUTROPHILS % (AUTO) 68.7 % (42-75); PLATELET COUNT 286 X10'3 (140-440); RED BLOOD COUNT 3.47 X10'6 (4.20-5.60); WHITE BLOOD COUNT 8.1 X10'3 (4.5-11.0)
[2021-02-26 05:47] LABS: ALANINE AMINOTRANSFERASE 12 U/L (12-78); ALBUMIN 2.3 G/DL (3.4-5.0); ALBUMIN/GLOBULIN RATIO 0.5 (1.1-1.5); ALKALINE PHOSPHATASE 107 IU/L (46-116); ANION GAP 6 (8-16); ASPARTATE AMINO TRANSFERASE 17 U/L (10-37); BILIRUBIN,TOTAL 0.4 MG/DL (0.1-1.0); BLOOD UREA NITROGEN 12 MG/DL (7-18); BUN/CREATININE RATIO 11.7 (6.6-38.0); CALCIUM 9.4 MG/DL (8.5-10.1); CHLORIDE 98 MMOL/L (99-107); CREATININE 1.03 MG/DL (0.40-0.90); GLUCOSE 104 MG/DL (70-104); MAGNESIUM 1.9 MG/DL (1.5-2.4); SODIUM 139 MMOL/L (135-145); TOTAL CARBON DIOXIDE 34.9 MMOL/L (24-32); TOTAL PROTEIN 7.4 G/DL (6.4-8.2); eGFR 54 ML/MIN
[2021-02-26 06:30] LABS: ANISOCYTOSIS 3+; MICROCYTOSIS 1+; PLATELET ESTIMATE NORMAL; STOMATOCYTES 1+
--- NOTE | 2021-02-26 06:30 | NUR ---
Problems reprioritized. Patient report given, questions answered & plan of care reviewed with TREMAINE HILLMAN.
[2021-02-26] MEDS: K and/or MAG REPLACEMENT MC SCH ×2 (08:00→20:00)
[2021-02-26] MEDS: budesonide 0.5mg/2ml UD nebule IH SCH ×2 (08:00→19:43)
[2021-02-26 08:45] VITALS: BP 112/55
[2021-02-26] MEDS: duloxetine 30mg CAPSULE.DR PO SCH (10:00)
[2021-02-26] MEDS: predniSONE 1 mg tablet PO SCH (10:00)
[2021-02-26] MEDS: aspirin 81mg tab.chew PO SCH (10:01)
[2021-02-26] MEDS: cholecalciferol (vitamin D3) 1,000 unit (25mcg) tablet PO SCH ×2 (10:02→20:21)
[2021-02-26] MEDS: furosemide 20MG tablet PO SCH ×2 (10:02→20:21)
[2021-02-26] MEDS: docusate sod 100mg capsule PO PRN (10:02)
[2021-02-26] MEDS: pantoprazole 40mg Tablet.DR PO SCH (10:03)
[2021-02-26] MEDS: nicotine 14mg patch - 24hr TD SCH (10:03)
[2021-02-26] MEDS: levoTHYROXINE 25mcg tablet PO SCH (10:03)
[2021-02-26] MEDS: anastrozole 1 MG tablet PO SCH (10:05)
--- NOTE | 2021-02-26 10:54 | NUR ---
Initial: Pt admit for fall with right foot and ankle fracture. Pt POD #4 s/p ORIF. Pt on a heart healthy diet initially with 100% PO intake which decreased to average 25% PO intake, however appears to be improving with 50% PO intake 8/6 at breakfast and lunch, up to 75% PO intake at dinner 8/6. Pending documentation of PO intake for today. LBM 8/ documented as a smear. Per EMR pt declined PRN Colace today. D/w dietary to send prunes and prune juice to assist with bowel regularity. Will continue to follow closely and monitor need for further nutrition intervention pending additional trends in PO intake. Recommendations: 1) Continue heart healthy diet 2) Monitor need for ONS/additional protein 3) Routine bowel care 4) Weekly scaled weights Addendum: 02/26/21 at [address] Amended: Links added.
[2021-02-26 12:04] VITALS: BP 117/49
[2021-02-26] MEDS: mag hydrox/Alum hydrox/simeth 30ml oral suspension PO PRN (17:43)
[2021-02-26 20:00] VITALS: BP 113/51
[2021-02-26] MEDS: cyclobenzaprine 10mg tablet PO PRN (20:21)
[2021-02-26] MEDS: ROPINIRole 1mg tablet PO SCH (20:21)
[2021-02-26] MEDS: pregabalin 75mg capsule PO SCH (20:21)
[2021-02-26] MEDS: enoxaparin 40mg/0.4ml syringe SQ SCH (20:22)
[2021-02-27] VITALS: BP 144/65
[2021-02-27] MEDS: oxyCODONE IR 5mg (immed. release) tablet PO PRN ×4 (05:59→21:03)
[2021-02-27] MEDS: anastrozole 1 MG tablet PO SCH (06:00)
[2021-02-27] MEDS: ABEMACICLIB 100 MG PO SCH ×2 (06:01→17:41)
--- NOTE | 2021-02-27 06:30 | NUR ---
Problems reprioritized. Patient report given, questions answered & plan of care reviewed with NOLAN HILLMAN.
--- NOTE | 2021-02-27 06:49 | NUR ---
Patient in room TEA 360. I have received report from Leah HILLMAN and had the opportunity to ask questions and assume patient care.
[2021-02-27 07:00] VITALS: BP 107/64
[2021-02-27] MEDS: budesonide 0.5mg/2ml UD nebule IH SCH ×2 (07:00→19:30)
[2021-02-27] MEDS: ipratropium/albuterol 3ml nebule NEB PRN (07:00)
[2021-02-27] MEDS: K and/or MAG REPLACEMENT MC SCH ×2 (08:00→20:00)
[2021-02-27] MEDS: levoTHYROXINE 25mcg tablet PO SCH (08:51)
[2021-02-27] MEDS: aspirin 81mg tab.chew PO SCH (08:51)
[2021-02-27] MEDS: predniSONE 1 mg tablet PO SCH (08:51)
[2021-02-27] MEDS: pantoprazole 40mg Tablet.DR PO SCH (08:51)
[2021-02-27] MEDS: cholecalciferol (vitamin D3) 1,000 unit (25mcg) tablet PO SCH ×2 (08:51→21:04)
[2021-02-27] MEDS: furosemide 20MG tablet PO SCH ×2 (08:51→21:05)
[2021-02-27] MEDS: duloxetine 30mg CAPSULE.DR PO SCH (08:51)
[2021-02-27] MEDS: nicotine 14mg patch - 24hr TD SCH (08:53)
[2021-02-27 11:00] VITALS: BP 122/60
[2021-02-27 11:35] LABS: ALBUMIN 2.5 G/DL (3.4-5.0); ANION GAP 8 (8-16); BLOOD UREA NITROGEN 10 MG/DL (7-18); BUN/CREATININE RATIO 9.3 (6.6-38.0); CALCIUM 9.4 MG/DL (8.5-10.1); CHLORIDE 97 MMOL/L (99-107); CREATININE 1.07 MG/DL (0.40-0.90); GLUCOSE 94 MG/DL (70-104); POTASSIUM 3.7 MMOL/L (3.5-5.1); SODIUM 141 MMOL/L (135-145); TOTAL CARBON DIOXIDE 35.9 MMOL/L (24-32); eGFR 52 ML/MIN
[2021-02-27] MEDS: albuterol 2.5 MG/3 ML nebule NEB PRN ×2 (12:19→19:29)
[2021-02-27] MEDS: cyclobenzaprine 10mg tablet PO PRN (17:41)
--- NOTE | 2021-02-27 18:35 | NUR ---
Patient in room TEA 360. I have received report from Kameron HILLMAN and had the opportunity to ask questions and assume patient care.
[2021-02-27 19:55] VITALS: BP 118/61
[2021-02-27] MEDS: ROPINIRole 1mg tablet PO SCH (21:04)
[2021-02-27] MEDS: pregabalin 75mg capsule PO SCH (21:05)
[2021-02-27] MEDS: enoxaparin 40mg/0.4ml syringe SQ SCH (21:08)
[2021-02-27] MEDS: Melatonin 3mg tablet PO SCH (21:10)
--- NOTE | 2021-02-27 21:21 | NUR ---
patient seen by DR Paiz, melatonin prescribed for HS as sleep aide. medicated q4hrs for pain 8/10 in right ankle. Flexeril also given for muscle spasms. with effect. patient worked with PT see note. . All cares given. report given to Mela HILLMAN
[2021-02-28] VITALS: BP 113/64
[2021-02-28] MEDS: cyclobenzaprine 10mg tablet PO PRN ×3 (05:09→18:29)
[2021-02-28] MEDS: ABEMACICLIB 100 MG PO SCH ×2 (05:10→18:29)
[2021-02-28] MEDS: anastrozole 1 MG tablet PO SCH (05:10)
[2021-02-28] MEDS: oxyCODONE IR 5mg (immed. release) tablet PO PRN ×3 (05:10→18:29)
--- NOTE | 2021-02-28 06:16 | NUR ---
Patient in room TEA 360. I have received report from Mela HILLMAN and had the opportunity to ask questions and assume patient care.
[2021-02-28] MEDS: K and/or MAG REPLACEMENT MC SCH ×2 (08:00→20:00)
[2021-02-28] MEDS: budesonide 0.5mg/2ml UD nebule IH SCH ×2 (08:14→19:36)
[2021-02-28] MEDS: albuterol 2.5 MG/3 ML nebule NEB PRN (08:14)
[2021-02-28] MEDS: predniSONE 1 mg tablet PO SCH (08:26)
[2021-02-28] MEDS: cholecalciferol (vitamin D3) 1,000 unit (25mcg) tablet PO SCH ×2 (08:26→20:21)
[2021-02-28] MEDS: aspirin 81mg tab.chew PO SCH (08:26)
[2021-02-28] MEDS: duloxetine 30mg CAPSULE.DR PO SCH (08:26)
[2021-02-28] MEDS: levoTHYROXINE 25mcg tablet PO SCH (08:26)
[2021-02-28] MEDS: furosemide 20MG tablet PO SCH ×2 (08:26→20:21)
[2021-02-28] MEDS: pantoprazole 40mg Tablet.DR PO SCH (08:26)
[2021-02-28] MEDS: nicotine 14mg patch - 24hr TD SCH (08:28)
[2021-02-28 08:47] VITALS: BP 109/61
[2021-02-28 11:00] VITALS: BP 103/56
[2021-02-28 18:00] VITALS: BP 119/50
[2021-02-28] MEDS: ipratropium/albuterol 3ml nebule NEB PRN (19:36)
[2021-02-28] MEDS: ROPINIRole 1mg tablet PO SCH (20:21)
[2021-02-28] MEDS: pregabalin 75mg capsule PO SCH (20:22)
[2021-02-28] MEDS: Melatonin 3mg tablet PO SCH (20:22)
[2021-02-28] MEDS: enoxaparin 40mg/0.4ml syringe SQ SCH (20:22)
[2021-02-28 23:55] VITALS: BP 133/62
[2021-03-01] MEDS: oxyCODONE IR 5mg (immed. release) tablet PO PRN ×4 (01:03→19:22)
[2021-03-01] MEDS: anastrozole 1 MG tablet PO SCH (04:52)
[2021-03-01] MEDS: ABEMACICLIB 100 MG PO SCH ×2 (04:52→16:47)
[2021-03-01] MEDS: cyclobenzaprine 10mg tablet PO PRN ×3 (04:53→19:22)
--- NOTE | 2021-03-01 06:38 | NUR ---
Problems reprioritized. Patient report given, questions answered & plan of care reviewed with Cassandra HILLMAN.
--- NOTE | 2021-03-01 06:51 | NUR ---
Patient in room TEA 360. I have received report from RAFY Goff and had the opportunity to ask questions and assume patient care.
[2021-03-01] MEDS: budesonide 0.5mg/2ml UD nebule IH SCH ×2 (06:53→19:47)
[2021-03-01] MEDS: albuterol 2.5 MG/3 ML nebule NEB PRN ×2 (06:53→19:47)
[2021-03-01 07:00] VITALS: BP 82/55
[2021-03-01] MEDS: K and/or MAG REPLACEMENT MC SCH ×2 (08:00→20:00)
[2021-03-01] MEDS: predniSONE 1 mg tablet PO SCH (08:06)
[2021-03-01] MEDS: pantoprazole 40mg Tablet.DR PO SCH (08:06)
[2021-03-01] MEDS: furosemide 20MG tablet PO SCH ×2 (08:06→19:22)
[2021-03-01] MEDS: aspirin 81mg tab.chew PO SCH (08:06)
[2021-03-01] MEDS: cholecalciferol (vitamin D3) 1,000 unit (25mcg) tablet PO SCH ×2 (08:06→19:22)
[2021-03-01] MEDS: levoTHYROXINE 25mcg tablet PO SCH (08:06)
[2021-03-01] MEDS: nicotine 14mg patch - 24hr TD SCH (08:06)
[2021-03-01] MEDS: duloxetine 30mg CAPSULE.DR PO SCH (08:06)
[2021-03-01 12:00] VITALS: BP 105/54
--- NOTE | 2021-03-01 12:18 | NUR ---
Reassessment: Pt PO intake has improved, avg 56% of meals which meets 79% of est energy needs and 91% of est protein needs. Pt still complains of R ankle pain. LBM 8/ w/ only smears noted daily, pt continues to refuse PRN colace per EMR. Will continue to monitor PO trends. Recommendations: 1) Continue heart healthy diet 2) Monitor need for ONS/additional protein 3) Routine bowel care 4) Weekly scaled weights Addendum: 03/01/21 at [address] Amended: Links added.
--- NOTE | 2021-03-01 17:57 | NUR ---
Pt transfered to ON unit with all belongings
[2021-03-01] MEDS: enoxaparin 40mg/0.4ml syringe SQ SCH (19:22)
[2021-03-01 19:29] VITALS: BP 119/87
[2021-03-01] MEDS: Melatonin 3mg tablet PO SCH (20:53)
[2021-03-01] MEDS: pregabalin 75mg capsule PO SCH (20:53)
[2021-03-01] MEDS: ROPINIRole 1mg tablet PO SCH (20:54)
[2021-03-01 22:00] VITALS: BP 119/59
[2021-03-02] MEDS: oxyCODONE IR 5mg (immed. release) tablet PO PRN ×5 (00:38→20:12)
[2021-03-02] MEDS: cyclobenzaprine 10mg tablet PO PRN ×3 (00:38→20:17)
[2021-03-02] MEDS: docusate sod 100mg capsule PO PRN (00:57)
--- NOTE | 2021-03-02 01:00 | NUR ---
Pt c/o inablility to have a BM. Offered colace and MOM. Pt refused MOM; administered colace.
[2021-03-02] MEDS: ABEMACICLIB 100 MG PO SCH ×2 (05:21→17:22)
[2021-03-02] MEDS: anastrozole 1 MG tablet PO SCH (05:22)
[2021-03-02] MEDS: albuterol 2.5 MG/3 ML nebule NEB PRN (05:34)
--- NOTE | 2021-03-02 06:22 | NUR ---
Problems reprioritized. Patient report given, questions answered & plan of care reviewed with RAFY Barraza.
--- NOTE | 2021-03-02 06:28 | NUR ---
Patient in room ORTHO 4013. I have received report from Ivonne HILLMAN and had the opportunity to ask questions and assume patient care.
[2021-03-02 06:44] VITALS: BP 133/73
[2021-03-02] MEDS: K and/or MAG REPLACEMENT MC SCH ×3 (08:00→20:00)
[2021-03-02] MEDS: aspirin 81mg tab.chew PO SCH (08:17)
[2021-03-02] MEDS: furosemide 20MG tablet PO SCH ×2 (08:17→20:12)
[2021-03-02] MEDS: pantoprazole 40mg Tablet.DR PO SCH (08:17)
[2021-03-02] MEDS: levoTHYROXINE 25mcg tablet PO SCH (08:17)
[2021-03-02] MEDS: duloxetine 30mg CAPSULE.DR PO SCH (08:17)
[2021-03-02] MEDS: cholecalciferol (vitamin D3) 1,000 unit (25mcg) tablet PO SCH ×2 (08:17→20:12)
[2021-03-02] MEDS: nicotine 14mg patch - 24hr TD SCH (08:18)
[2021-03-02] MEDS: predniSONE 1 mg tablet PO SCH (08:21)
[2021-03-02] MEDS: budesonide 0.5mg/2ml UD nebule IH SCH ×2 (08:43→20:07)
[2021-03-02 09:43] LABS: MAGNESIUM 1.9 MG/DL (1.5-2.4); POTASSIUM 3.4 MMOL/L (3.5-5.1)
[2021-03-02] MEDS ORDERED: magnesium Cl slow-release 64mg tablet PO PRN (09:50)
[2021-03-02] MEDS ORDERED: potassium Cl 20 mEq SR tablet PO PRN (09:50)
[2021-03-02] MEDS ORDERED: magnesium 4gm in 100ml NS 100 ML IV PRN (09:50)
[2021-03-02] MEDS ORDERED: potassium Cl 40MEQ/1/2NS 520ml 520 ML IV PRN (09:50)
[2021-03-02] MEDS: magnesium hydroxide 30ml (MOM) UD suspension PO PRN (10:05)
[2021-03-02] MEDS: potassium Cl 20 mEq SR tablet PO PRN ×3 (10:05→17:22)
[2021-03-02 11:01] VITALS: BP 124/79
[2021-03-02 18:00] VITALS: BP 142/57
--- NOTE | 2021-03-02 18:10 | NUR ---
Problems reprioritized. Patient report given, questions answered & plan of care reviewed with Thais HILLMAN.
[2021-03-02] MEDS: ipratropium/albuterol 3ml nebule NEB PRN (20:07)
[2021-03-02] MEDS: ROPINIRole 1mg tablet PO SCH (20:12)
[2021-03-02] MEDS: pregabalin 75mg capsule PO SCH (20:12)
[2021-03-02] MEDS: Melatonin 3mg tablet PO SCH (20:12)
[2021-03-02] MEDS: enoxaparin 40mg/0.4ml syringe SQ SCH (20:13)
[2021-03-02 22:00] VITALS: BP 106/66
[2021-03-03] MEDS: oxyCODONE IR 5mg (immed. release) tablet PO PRN ×5 (05:25→22:08)
[2021-03-03] MEDS: anastrozole 1 MG tablet PO SCH (05:25)
[2021-03-03] MEDS: ABEMACICLIB 100 MG PO SCH ×2 (05:26→17:23)
[2021-03-03 06:00] VITALS: BP 104/84
--- NOTE | 2021-03-03 06:30 | NUR ---
Patient in room ORTHO 4013. I have received report from RAFY Plascencia and had the opportunity to ask questions and assume patient care.
[2021-03-03] MEDS: ipratropium/albuterol 3ml nebule NEB PRN ×2 (07:52→14:18)
[2021-03-03] MEDS: budesonide 0.5mg/2ml UD nebule IH SCH ×2 (07:52→19:41)
[2021-03-03] MEDS: K and/or MAG REPLACEMENT MC SCH ×4 (08:00→19:51)
[2021-03-03] MEDS: furosemide 20MG tablet PO SCH ×2 (08:00→20:01)
[2021-03-03] MEDS: predniSONE 1 mg tablet PO SCH (09:11)
[2021-03-03] MEDS: cholecalciferol (vitamin D3) 1,000 unit (25mcg) tablet PO SCH ×2 (09:11→20:02)
[2021-03-03] MEDS: duloxetine 30mg CAPSULE.DR PO SCH (09:11)
[2021-03-03] MEDS: aspirin 81mg tab.chew PO SCH (09:12)
[2021-03-03] MEDS: levoTHYROXINE 25mcg tablet PO SCH (09:12)
[2021-03-03] MEDS: pantoprazole 40mg Tablet.DR PO SCH (09:12)
[2021-03-03] MEDS: nicotine 14mg patch - 24hr TD SCH (09:13)
[2021-03-03 09:46] LABS: ALANINE AMINOTRANSFERASE 12 U/L (12-78); ALBUMIN 2.5 G/DL (3.4-5.0); ALBUMIN/GLOBULIN RATIO 0.4 (1.1-1.5); ALKALINE PHOSPHATASE 107 IU/L (46-116); ANION GAP 6 (8-16); ASPARTATE AMINO TRANSFERASE 19 U/L (10-37); BILIRUBIN,TOTAL 0.2 MG/DL (0.1-1.0); BLOOD UREA NITROGEN 12 MG/DL (7-18); BUN/CREATININE RATIO 10.7 (6.6-38.0); CALCIUM 9.1 MG/DL (8.5-10.1); CHLORIDE 98 MMOL/L (99-107); CREATININE 1.12 MG/DL (0.40-0.90); GLUCOSE 120 MG/DL (70-104); SODIUM 138 MMOL/L (135-145); TOTAL CARBON DIOXIDE 34.2 MMOL/L (24-32); TOTAL PROTEIN 8.2 G/DL (6.4-8.2); eGFR 49 ML/MIN
[2021-03-03 09:48] LABS: POTASSIUM 4.3 MMOL/L (3.5-5.1)
[2021-03-03 10:00] VITALS: BP 137/62
[2021-03-03 10:18] LABS: BASOPHILS # (AUTO) 0.1 X10'3 (0-0.2); BASOPHILS % (AUTO) 0.8 % (0-1); EOSINOPHILS # (AUTO) 0.1 X10'3 (0-0.9); EOSINOPHILS % (AUTO) 1.8 % (0-6); HEMATOCRIT 29.8 % (35.0-45.0); HEMOGLOBIN 9.7 g/dl (12.0-16.0); LYMPHOCYTES # (AUTO) 1.4 X10'3 (1.1-4.8); LYMPHOCYTES % (AUTO) 17.9 % (21-51); MEAN CORPUSCULAR HEMOGLOBIN 27.7 PG (27.0-31.0); MEAN CORPUSCULAR HGB CONC 32.4 g/dL (33.0-36.5); MEAN CORPUSCULAR VOLUME 85.6 FL (78-98); MEAN PLATELET VOLUME 7.8 FL (7.4-10.4); MONOCYTES # (AUTO) 0.5 X10'3 (0-0.9); MONOCYTES % (AUTO) 6.8 % (2-12); NEUTROPHILS # (AUTO) 5.9 X10'3 (1.8-7.7); NEUTROPHILS % (AUTO) 72.7 % (42-75); PLATELET COUNT 376 X10'3 (140-440); RED BLOOD COUNT 3.48 X10'6 (4.20-5.60); RED CELL DISTRIBUTION WIDTH 19.6 % (11.5-14.5); WHITE BLOOD COUNT 8.1 X10'3 (4.5-11.0)
[2021-03-03 18:00] VITALS: BP 121/65
--- NOTE | 2021-03-03 18:28 | NUR ---
Patient in room ORTHO 4013. I have received report from RAFY Escobar and had the opportunity to ask questions and assume patient care.
--- NOTE | 2021-03-03 18:40 | NUR ---
Problems reprioritized. Patient report given,Lizzie HILLMAN questions answered & plan of care reviewed with .
[2021-03-03] MEDS: albuterol 2.5 MG/3 ML nebule NEB PRN (19:41)
[2021-03-03 20:00] VITALS: BP 113/56
[2021-03-03] MEDS: ROPINIRole 1mg tablet PO SCH (20:01)
[2021-03-03] MEDS: pregabalin 75mg capsule PO SCH (20:01)
[2021-03-03] MEDS: enoxaparin 40mg/0.4ml syringe SQ SCH (20:02)
[2021-03-03] MEDS: Melatonin 3mg tablet PO SCH (20:07)
[2021-03-03 22:00] VITALS: BP 130/56
[2021-03-04] MEDS: oxyCODONE IR 5mg (immed. release) tablet PO PRN ×3 (05:27→13:59)
[2021-03-04] MEDS: ABEMACICLIB 100 MG PO SCH ×2 (05:29→18:09)
[2021-03-04] MEDS: anastrozole 1 MG tablet PO SCH (05:30)
[2021-03-04 06:00] VITALS: BP 108/60
[2021-03-04 06:19] LABS: BASOPHILS # (AUTO) 0.1 X10'3 (0-0.2); BASOPHILS % (AUTO) 0.9 % (0-1); EOSINOPHILS # (AUTO) 0.2 X10'3 (0-0.9); EOSINOPHILS % (AUTO) 2.5 % (0-6); HEMATOCRIT 30.6 % (35.0-45.0); HEMOGLOBIN 9.8 g/dl (12.0-16.0); LYMPHOCYTES # (AUTO) 1.6 X10'3 (1.1-4.8); LYMPHOCYTES % (AUTO) 21.3 % (21-51); MEAN CORPUSCULAR HEMOGLOBIN 27.3 PG (27.0-31.0); MEAN CORPUSCULAR VOLUME 85.4 FL (78-98); MEAN PLATELET VOLUME 7.9 FL (7.4-10.4); MONOCYTES # (AUTO) 0.5 X10'3 (0-0.9); MONOCYTES % (AUTO) 6.2 % (2-12); NEUTROPHILS # (AUTO) 5.3 X10'3 (1.8-7.7); NEUTROPHILS % (AUTO) 69.1 % (42-75); PLATELET COUNT 385 X10'3 (140-440); RED BLOOD COUNT 3.58 X10'6 (4.20-5.60); RED CELL DISTRIBUTION WIDTH 19.8 % (11.5-14.5); WHITE BLOOD COUNT 7.7 X10'3 (4.5-11.0)
--- NOTE | 2021-03-04 06:35 | NUR ---
Problems reprioritized. Patient report given, questions answered & plan of care reviewed with RAFY Loza.
--- NOTE | 2021-03-04 06:41 | NUR ---
Patient in room ORTHO 4013. I have received report from RAFY Loza and had the opportunity to ask questions and assume patient care.
[2021-03-04 06:56] LABS: ALANINE AMINOTRANSFERASE 11 U/L (12-78); ALBUMIN 2.5 G/DL (3.4-5.0); ALBUMIN/GLOBULIN RATIO 0.5 (1.1-1.5); ALKALINE PHOSPHATASE 115 IU/L (46-116); ANION GAP 6 (8-16); ASPARTATE AMINO TRANSFERASE 13 U/L (10-37); BILIRUBIN,TOTAL 0.3 MG/DL (0.1-1.0); BLOOD UREA NITROGEN 11 MG/DL (7-18); BUN/CREATININE RATIO 9.9 (6.6-38.0); CALCIUM 9.1 MG/DL (8.5-10.1); CHLORIDE 101 MMOL/L (99-107); CREATININE 1.11 MG/DL (0.40-0.90); GLUCOSE 102 MG/DL (70-104); SODIUM 140 MMOL/L (135-145); TOTAL PROTEIN 7.5 G/DL (6.4-8.2); eGFR 50 ML/MIN
[2021-03-04 07:12] LABS: PLATELET ESTIMATE NORMAL
[2021-03-04 07:15] LABS: ANISOCYTOSIS 2+; LARGE PLATELETS FEW; MICROCYTOSIS 1+; POLYCHROMASIA FEW
[2021-03-04] MEDS: furosemide 20MG tablet PO SCH ×2 (08:00→22:15)
[2021-03-04] MEDS: K and/or MAG REPLACEMENT MC SCH ×3 (08:00→20:00)
[2021-03-04] MEDS: ipratropium/albuterol 3ml nebule NEB PRN (08:12)
[2021-03-04] MEDS: budesonide 0.5mg/2ml UD nebule IH SCH ×2 (08:12→19:59)
[2021-03-04] MEDS: nicotine 14mg patch - 24hr TD SCH (09:00)
[2021-03-04] MEDS: pantoprazole 40mg Tablet.DR PO SCH (09:06)
[2021-03-04] MEDS: levoTHYROXINE 25mcg tablet PO SCH (09:06)
[2021-03-04] MEDS: cholecalciferol (vitamin D3) 1,000 unit (25mcg) tablet PO SCH ×2 (09:06→19:43)
[2021-03-04] MEDS: predniSONE 1 mg tablet PO SCH (09:06)
[2021-03-04] MEDS: duloxetine 30mg CAPSULE.DR PO SCH (09:06)
[2021-03-04] MEDS: aspirin 81mg tab.chew PO SCH (09:10)
[2021-03-04 10:00] VITALS: BP 112/54
--- NOTE | 2021-03-04 13:39 | NUR ---
Page Sent PAGER ID: [phone] MESSAGE: BgAdan [phone] Regarding [id number] Carli Reece F/U regarding a change to pain medication per our discussion. Pt taking Oxy IR 10mg Q4 PRN around the clock-not effective per pt.
[2021-03-04] MEDS ORDERED: HYDROmorphone inj. 0.5 MG/0.5 ML DISP.SYRIN IV PRN (14:10)
[2021-03-04 18:00] VITALS: BP 118/65
--- NOTE | 2021-03-04 18:05 | NUR ---
Patient in room ORTHO 4013. I have received report from Janette HILLMAN and had the opportunity to ask questions and assume patient care.
--- NOTE | 2021-03-04 18:22 | NUR ---
Problems reprioritized. Patient report given, RAFY Martinez questions answered & plan of care reviewed with .
[2021-03-04] MEDS: cyclobenzaprine 10mg tablet PO PRN (19:43)
[2021-03-04] MEDS: enoxaparin 40mg/0.4ml syringe SQ SCH (19:43)
[2021-03-04] MEDS: oxyCODONE/APAP 10/325mg tablet PO PRN (19:44)
[2021-03-04] MEDS: albuterol 2.5 MG/3 ML nebule NEB PRN (20:00)
--- NOTE | 2021-03-04 20:00 | NUR ---
When wiping her after I cleaned the urine from her I noted that she has small smears of stool, she said this has been happening for awhile. Addendum: 03/05/21 at 0036 by Michelle Figueroa RN Amended: Links added.
[2021-03-04] MEDS: Melatonin 3mg tablet PO SCH (21:12)
[2021-03-04] MEDS: ROPINIRole 1mg tablet PO SCH (21:12)
[2021-03-04] MEDS: HYDROmorphone 1 mg/ml syringe IV PRN (21:12)
[2021-03-04] MEDS: pregabalin 75mg capsule PO SCH (21:14)
[2021-03-04 22:00] VITALS: BP 111/57
[2021-03-05] MEDS: oxyCODONE/APAP 10/325mg tablet PO PRN ×2 (01:51→15:55)
--- NOTE | 2021-03-05 02:06 | NUR ---
Pt declined hs care
[2021-03-05] MEDS: cyclobenzaprine 10mg tablet PO PRN ×2 (04:41→15:55)
--- NOTE | 2021-03-05 04:59 | NUR ---
Patient told me that she had lost her lower full denture after her surgery and she told staff about it. I reviewed the chart and it is documented by a surgical nurse once she was back to her room from the OR. I will inform my boss about it and see if anything has been done regarding replacing denture or trying to find it. documented lost on 02/24 by Racquel Pacheco. Addendum: 03/05/21 at 0501 by Michelle Figueroa RN Amended: Links added.
[2021-03-05] MEDS: HYDROmorphone 1 mg/ml syringe IV PRN ×3 (05:34→20:12)
[2021-03-05] MEDS: anastrozole 1 MG tablet PO SCH (05:39)
[2021-03-05] MEDS: ABEMACICLIB 100 MG PO SCH ×2 (05:40→18:04)
[2021-03-05 05:58] LABS: BASOPHILS # (AUTO) 0.1 X10'3 (0-0.2); EOSINOPHILS # (AUTO) 0.2 X10'3 (0-0.9); EOSINOPHILS % (AUTO) 2.5 % (0-6); HEMATOCRIT 31.3 % (35.0-45.0); HEMOGLOBIN 10.2 g/dl (12.0-16.0); LYMPHOCYTES # (AUTO) 1.5 X10'3 (1.1-4.8); LYMPHOCYTES % (AUTO) 20.9 % (21-51); MEAN CORPUSCULAR HEMOGLOBIN 27.5 PG (27.0-31.0); MEAN CORPUSCULAR HGB CONC 32.5 g/dL (33.0-36.5); MEAN CORPUSCULAR VOLUME 84.8 FL (78-98); MONOCYTES # (AUTO) 0.4 X10'3 (0-0.9); MONOCYTES % (AUTO) 5.4 % (2-12); NEUTROPHILS # (AUTO) 5.1 X10'3 (1.8-7.7); NEUTROPHILS % (AUTO) 70.2 % (42-75); PLATELET COUNT 426 X10'3 (140-440); RED BLOOD COUNT 3.69 X10'6 (4.20-5.60); RED CELL DISTRIBUTION WIDTH 19.1 % (11.5-14.5); WHITE BLOOD COUNT 7.3 X10'3 (4.5-11.0)
[2021-03-05 06:00] VITALS: BP 114/59
[2021-03-05 06:25] LABS: ALANINE AMINOTRANSFERASE 12 U/L (12-78); ALBUMIN 2.7 G/DL (3.4-5.0); ALBUMIN/GLOBULIN RATIO 0.5 (1.1-1.5); ALKALINE PHOSPHATASE 124 IU/L (46-116); ANION GAP 6 (8-16); ASPARTATE AMINO TRANSFERASE 19 U/L (10-37); BILIRUBIN,TOTAL 0.3 MG/DL (0.1-1.0); BLOOD UREA NITROGEN 11 MG/DL (7-18); BUN/CREATININE RATIO 9.7 (6.6-38.0); CALCIUM 9.5 MG/DL (8.5-10.1); CHLORIDE 100 MMOL/L (99-107); CREATININE 1.13 MG/DL (0.40-0.90); GLUCOSE 93 MG/DL (70-104); MAGNESIUM 2.1 MG/DL (1.5-2.4); POTASSIUM 3.8 MMOL/L (3.5-5.1); SODIUM 140 MMOL/L (135-145); TOTAL CARBON DIOXIDE 34.1 MMOL/L (24-32); TOTAL PROTEIN 8.1 G/DL (6.4-8.2); eGFR 49 ML/MIN
--- NOTE | 2021-03-05 06:25 | NUR ---
Problems reprioritized. Patient report given, questions answered & plan of care reviewed with Janette HILLMAN.
--- NOTE | 2021-03-05 06:38 | NUR ---
Patient in room ORTHO 4013. I have received report from RAFY Martinez and had the opportunity to ask questions and assume patient care.
[2021-03-05 07:04] LABS: ANISOCYTOSIS 2+; MICROCYTOSIS 1+; PLATELET ESTIMATE NORMAL; POLYCHROMASIA FEW; STOMATOCYTES 5
[2021-03-05 07:05] LABS: LARGE PLATELETS FEW
[2021-03-05] MEDS: budesonide 0.5mg/2ml UD nebule IH SCH ×2 (07:17→20:12)
[2021-03-05] MEDS: cholecalciferol (vitamin D3) 1,000 unit (25mcg) tablet PO SCH ×2 (07:42→20:02)
[2021-03-05] MEDS: levoTHYROXINE 25mcg tablet PO SCH (07:42)
[2021-03-05] MEDS: furosemide 20MG tablet PO SCH ×2 (07:42→20:03)
[2021-03-05] MEDS: aspirin 81mg tab.chew PO SCH (07:42)
[2021-03-05] MEDS: pantoprazole 40mg Tablet.DR PO SCH (07:42)
[2021-03-05] MEDS: duloxetine 30mg CAPSULE.DR PO SCH (07:42)
[2021-03-05] MEDS: predniSONE 1 mg tablet PO SCH (07:42)
[2021-03-05] MEDS: nicotine 14mg patch - 24hr TD SCH (07:44)
[2021-03-05] MEDS: K and/or MAG REPLACEMENT MC SCH ×2 (08:00→20:00)
[2021-03-05 10:00] VITALS: BP 89/55
[2021-03-05 12:00] VITALS: BP 120/64
--- NOTE | 2021-03-05 12:45 | NUR ---
Reassessment: Noted low Carlos of 12, pt with a surgical site to right ankle s/p ORIF and per WOC notes pt with partial thick skin tear to left buttock which appears to be healing well per RN. Pt continues with average 50-75% PO intake not fully meeting estimated nutrient needs. 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 D/w dietary to chop food to assist with meals. See below for additional recommendations that were d/w dietary. LBM 03/03, documented as moderate in size following admin of PRN bowel care. Will continue to follow and monitor need for further nutrition intervention. Recommendations: 1) Continue heart healthy diet 2) Chop food to assist with meals given bilat hand neuropathy; yogurt BIDBD, cottage cheese WL; monitor need for ONS 3) Routine bowel care 4) Weekly scaled weights Addendum: 03/05/21 at [address] Amended: Links added.
[2021-03-05 14:24] LABS: CLARITY,URINE SLIGHTLY CLOUDY (Clear); COLOR,URINE STRAW (Yellow); GLUCOSE, URINE NEGATIVE (Neg); KETONES,URINE NEGATIVE (Neg); LEUKOCYTE ESTERASE ,URINE MODERATE (Neg); NITRITES, URINE POSITIVE (Neg); OCCULT BLOOD,URINE TRACE-INTACT (Neg); PROTEIN,URINE NEGATIVE (Neg); UROBILINOGEN,URINE 0.2 E.U/dL (0.2-1.0)
[2021-03-05 14:26] LABS: UA COLLECTION TYPE FOLEY CATH
[2021-03-05 14:34] LABS: BACTERIA,URINE 4+ /HPF (Neg); MUCUS STRANDS NONE SEEN /LPF (Neg); RBC,URINE 0-2 /HPF (0-2); SQUAMOUS EPITHELIAL CELL,UR FEW /LPF (FEW); WBC CLUMPS,URINE FEW /HPF (NEGATIVE)
[2021-03-05 18:00] VITALS: BP 121/61
--- NOTE | 2021-03-05 18:34 | NUR ---
Problems reprioritized. Patient report given, tari cai questions answered & plan of care reviewed with .
--- NOTE | 2021-03-05 18:38 | NUR ---
Patient in room ORTHO 4013. I have received report from Janette HILLMAN and had the opportunity to ask questions and assume patient care.
[2021-03-05] MEDS: Melatonin 3mg tablet PO SCH (20:03)
[2021-03-05] MEDS: pregabalin 75mg capsule PO SCH (20:03)
[2021-03-05] MEDS: enoxaparin 40mg/0.4ml syringe SQ SCH (20:03)
[2021-03-05] MEDS: ROPINIRole 1mg tablet PO SCH (20:03)
[2021-03-05 20:10] VITALS: BP 121/64
[2021-03-05] MEDS: albuterol 2.5 MG/3 ML nebule NEB PRN (20:12)
[2021-03-05 22:00] VITALS: BP 111/56
[2021-03-06] MEDS: cyclobenzaprine 10mg tablet PO PRN ×2 (03:48→11:13)
[2021-03-06] MEDS: oxyCODONE/APAP 10/325mg tablet PO PRN ×3 (03:48→20:34)
[2021-03-06] MEDS: ABEMACICLIB 100 MG PO SCH ×2 (04:58→16:59)
[2021-03-06] MEDS: anastrozole 1 MG tablet PO SCH (04:58)
[2021-03-06 05:42] LABS: BASOPHILS # (AUTO) 0.1 X10'3 (0-0.2); BASOPHILS % (AUTO) 0.9 % (0-1); EOSINOPHILS # (AUTO) 0.1 X10'3 (0-0.9); EOSINOPHILS % (AUTO) 1.8 % (0-6); HEMATOCRIT 30.3 % (35.0-45.0); HEMOGLOBIN 9.6 g/dl (12.0-16.0); LYMPHOCYTES # (AUTO) 1.4 X10'3 (1.1-4.8); LYMPHOCYTES % (AUTO) 17.9 % (21-51); MEAN CORPUSCULAR HEMOGLOBIN 27.2 PG (27.0-31.0); MEAN CORPUSCULAR HGB CONC 31.6 g/dL (33.0-36.5); MEAN CORPUSCULAR VOLUME 86.3 FL (78-98); MEAN PLATELET VOLUME 7.8 FL (7.4-10.4); MONOCYTES # (AUTO) 0.5 X10'3 (0-0.9); MONOCYTES % (AUTO) 6.6 % (2-12); NEUTROPHILS # (AUTO) 5.9 X10'3 (1.8-7.7); NEUTROPHILS % (AUTO) 72.8 % (42-75); PLATELET COUNT 411 X10'3 (140-440); RED BLOOD COUNT 3.52 X10'6 (4.20-5.60); RED CELL DISTRIBUTION WIDTH 19.3 % (11.5-14.5); WHITE BLOOD COUNT 8.1 X10'3 (4.5-11.0)
[2021-03-06 06:00] VITALS: BP 130/66
[2021-03-06 06:11] LABS: ALANINE AMINOTRANSFERASE 12 U/L (12-78); ALBUMIN 2.5 G/DL (3.4-5.0); ALBUMIN/GLOBULIN RATIO 0.5 (1.1-1.5); ALKALINE PHOSPHATASE 117 IU/L (46-116); ANION GAP 4 (8-16); ASPARTATE AMINO TRANSFERASE 13 U/L (10-37); BILIRUBIN,TOTAL 0.2 MG/DL (0.1-1.0); CHLORIDE 100 MMOL/L (99-107); CREATININE 1.12 MG/DL (0.40-0.90); GLUCOSE 111 MG/DL (70-104); POTASSIUM 3.7 MMOL/L (3.5-5.1); SODIUM 139 MMOL/L (135-145); TOTAL CARBON DIOXIDE 35.4 MMOL/L (24-32); TOTAL PROTEIN 7.7 G/DL (6.4-8.2); eGFR 49 ML/MIN
[2021-03-06 06:23] LABS: BLOOD UREA NITROGEN 13 MG/DL (7-18); BUN/CREATININE RATIO 11.6 (6.6-38.0)
--- NOTE | 2021-03-06 06:37 | NUR ---
Problems reprioritized. Patient report given, questions answered & plan of care reviewed with Roselia HILLMAN.
--- NOTE | 2021-03-06 06:37 | NUR ---
Patient in room ORTHO 4013B. I have received report from RAFY GUILLEN and had the opportunity to ask questions and assume patient care.
[2021-03-06] MEDS: albuterol 2.5 MG/3 ML nebule NEB PRN ×2 (07:42→20:19)
[2021-03-06] MEDS: budesonide 0.5mg/2ml UD nebule IH SCH ×2 (07:42→20:19)
[2021-03-06] MEDS: duloxetine 30mg CAPSULE.DR PO SCH (07:49)
[2021-03-06] MEDS: predniSONE 1 mg tablet PO SCH (07:49)
[2021-03-06] MEDS: nicotine 14mg patch - 24hr TD SCH (07:49)
[2021-03-06] MEDS: levoTHYROXINE 25mcg tablet PO SCH (07:49)
[2021-03-06] MEDS: cholecalciferol (vitamin D3) 1,000 unit (25mcg) tablet PO SCH ×2 (07:49→20:32)
[2021-03-06] MEDS: furosemide 20MG tablet PO SCH ×2 (07:49→20:32)
[2021-03-06] MEDS: aspirin 81mg tab.chew PO SCH (07:49)
[2021-03-06] MEDS: pantoprazole 40mg Tablet.DR PO SCH (07:49)
[2021-03-06] MEDS: K and/or MAG REPLACEMENT MC SCH ×2 (08:00→20:00)
[2021-03-06] MEDS: HYDROmorphone 1 mg/ml syringe IV PRN ×2 (08:07→16:59)
[2021-03-06 10:00] VITALS: BP 111/57
[2021-03-06] MEDS: magnesium hydroxide 30ml (MOM) UD suspension PO PRN (16:58)
[2021-03-06 18:00] VITALS: BP 104/54
--- NOTE | 2021-03-06 18:58 | NUR ---
Patient in room ORTHO 4013B. I have received report from RAFY MCFARLAND and had the opportunity to ask questions and assume patient care.
[2021-03-06] MEDS: ROPINIRole 1mg tablet PO SCH (20:33)
[2021-03-06] MEDS: Melatonin 3mg tablet PO SCH (20:34)
[2021-03-06] MEDS: pregabalin 75mg capsule PO SCH (20:34)
[2021-03-06] MEDS: enoxaparin 40mg/0.4ml syringe SQ SCH (20:34)
[2021-03-06 22:00] VITALS: BP 132/61
[2021-03-07] MEDS: HYDROmorphone 1 mg/ml syringe IV PRN ×2 (00:48→16:33)
[2021-03-07] MEDS: anastrozole 1 MG tablet PO SCH (04:52)
[2021-03-07] MEDS: oxyCODONE/APAP 10/325mg tablet PO PRN ×3 (04:52→19:22)
[2021-03-07] MEDS: ABEMACICLIB 100 MG PO SCH ×2 (05:04→16:32)
[2021-03-07 06:00] VITALS: BP 157/82
--- NOTE | 2021-03-07 06:14 | NUR ---
Patient in room ORTHO 4013B. I have received report from RAFY MCFARLAND and had the opportunity to ask questions and assume patient care.
--- NOTE | 2021-03-07 06:19 | NUR ---
Problems reprioritized. Patient report given, questions answered & plan of care reviewed with RAFY EDEN.
[2021-03-07] MEDS: aspirin 81mg tab.chew PO SCH (07:19)
[2021-03-07] MEDS: predniSONE 1 mg tablet PO SCH (07:20)
[2021-03-07] MEDS: cholecalciferol (vitamin D3) 1,000 unit (25mcg) tablet PO SCH ×2 (07:20→19:23)
[2021-03-07] MEDS: pantoprazole 40mg Tablet.DR PO SCH (07:20)
[2021-03-07] MEDS: levoTHYROXINE 25mcg tablet PO SCH (07:20)
[2021-03-07] MEDS: duloxetine 30mg CAPSULE.DR PO SCH (07:20)
[2021-03-07] MEDS: furosemide 20MG tablet PO SCH ×2 (07:20→19:22)
[2021-03-07] MEDS: nicotine 14mg patch - 24hr TD SCH (07:21)
[2021-03-07 07:27] LABS: BASOPHILS # (AUTO) 0.1 X10'3 (0-0.2); EOSINOPHILS # (AUTO) 0.2 X10'3 (0-0.9); EOSINOPHILS % (AUTO) 2.1 % (0-6); HEMATOCRIT 30.2 % (35.0-45.0); LYMPHOCYTES # (AUTO) 1.8 X10'3 (1.1-4.8); LYMPHOCYTES % (AUTO) 24.9 % (21-51); MEAN CORPUSCULAR HEMOGLOBIN 27.9 PG (27.0-31.0); MEAN CORPUSCULAR HGB CONC 33.1 g/dL (33.0-36.5); MEAN CORPUSCULAR VOLUME 84.4 FL (78-98); MEAN PLATELET VOLUME 7.7 FL (7.4-10.4); MONOCYTES # (AUTO) 0.5 X10'3 (0-0.9); MONOCYTES % (AUTO) 6.7 % (2-12); NEUTROPHILS # (AUTO) 4.8 X10'3 (1.8-7.7); NEUTROPHILS % (AUTO) 65.3 % (42-75); PLATELET COUNT 405 X10'3 (140-440); RED BLOOD COUNT 3.57 X10'6 (4.20-5.60); RED CELL DISTRIBUTION WIDTH 19.5 % (11.5-14.5); WHITE BLOOD COUNT 7.3 X10'3 (4.5-11.0)
[2021-03-07 07:46] LABS: ALANINE AMINOTRANSFERASE 12 U/L (12-78); ALBUMIN 2.6 G/DL (3.4-5.0); ALBUMIN/GLOBULIN RATIO 0.5 (1.1-1.5); ALKALINE PHOSPHATASE 116 IU/L (46-116); ANION GAP 6 (8-16); ASPARTATE AMINO TRANSFERASE 15 U/L (10-37); BILIRUBIN,TOTAL 0.2 MG/DL (0.1-1.0); BLOOD UREA NITROGEN 12 MG/DL (7-18); BUN/CREATININE RATIO 11.2 (6.6-38.0); CALCIUM 9.1 MG/DL (8.5-10.1); CHLORIDE 102 MMOL/L (99-107); CREATININE 1.07 MG/DL (0.40-0.90); GLUCOSE 100 MG/DL (70-104); POTASSIUM 3.6 MMOL/L (3.5-5.1); SODIUM 143 MMOL/L (135-145); TOTAL CARBON DIOXIDE 35.2 MMOL/L (24-32); eGFR 52 ML/MIN
[2021-03-07] MEDS: K and/or MAG REPLACEMENT MC SCH ×2 (08:00→20:00)
[2021-03-07] MEDS: cyclobenzaprine 10mg tablet PO PRN ×2 (08:25→19:21)
[2021-03-07] MEDS: budesonide 0.5mg/2ml UD nebule IH SCH ×2 (08:30→20:25)
[2021-03-07] MEDS: ipratropium/albuterol 3ml nebule NEB PRN (08:30)
--- NOTE | 2021-03-07 09:37 | NUR ---
Page Sent PAGER ID: [phone] MESSAGE: MEEK [id number] RE: LINDSAY MCCAULEY [id number] PT HAS 4+ BACTERIA, WOULD YOU LIKE PT ON ANTIBIOTICS? THANK YOU
[2021-03-07 09:59] LABS: ANISOCYTOSIS 2+; HYPOCHROMASIA 1+; PLATELET ESTIMATE NORMAL; STOMATOCYTES 1+
[2021-03-07 10:00] VITALS: BP 119/62
[2021-03-07] MEDS: docusate sod 100mg capsule PO PRN (12:47)
--- NOTE | 2021-03-07 18:26 | NUR ---
Problems reprioritized. Patient report given, questions answered & plan of care reviewed with MATIAS SALCEDO RN.
--- NOTE | 2021-03-07 18:30 | NUR ---
Patient in room ORTHO 4013. I have received report from MEEK HILLMAN and had the opportunity to ask questions and assume patient care.
[2021-03-07 19:00] VITALS: BP 126/65
[2021-03-07] MEDS: enoxaparin 40mg/0.4ml syringe SQ SCH (19:23)
[2021-03-07] MEDS: Melatonin 3mg tablet PO SCH (19:26)
[2021-03-07] MEDS: pregabalin 75mg capsule PO SCH (19:27)
[2021-03-07] MEDS: ROPINIRole 1mg tablet PO SCH (19:27)
[2021-03-07] MEDS: albuterol 2.5 MG/3 ML nebule NEB PRN (20:25)
[2021-03-08] VITALS: BP 124/60
[2021-03-08] MEDS: anastrozole 1 MG tablet PO SCH (05:27)
[2021-03-08] MEDS: ABEMACICLIB 100 MG PO SCH (05:27)
[2021-03-08] MEDS: oxyCODONE/APAP 10/325mg tablet PO PRN ×2 (05:29→11:46)
[2021-03-08 06:00] VITALS: BP 150/74
--- NOTE | 2021-03-08 06:08 | NUR ---
Problems reprioritized. Patient report given, questions answered & plan of care reviewed with MARTI HILLMAN.
--- NOTE | 2021-03-08 06:08 | NUR ---
Problems reprioritized. Patient report given, questions answered & plan of care reviewed with MEEK HILLMAN.
--- NOTE | 2021-03-08 06:09 | NUR ---
Patient in room ORTHO 4013b. I have received report from MATIAS SALCEDO RN and had the opportunity to ask questions and assume patient care.
[2021-03-08 06:43] LABS: BASOPHILS # (AUTO) 0.1 X10'3 (0-0.2); BASOPHILS % (AUTO) 0.9 % (0-1); EOSINOPHILS # (AUTO) 0.2 X10'3 (0-0.9); EOSINOPHILS % (AUTO) 2.3 % (0-6); HEMATOCRIT 30.1 % (35.0-45.0); HEMOGLOBIN 9.8 g/dl (12.0-16.0); LYMPHOCYTES # (AUTO) 1.9 X10'3 (1.1-4.8); LYMPHOCYTES % (AUTO) 27.3 % (21-51); MEAN CORPUSCULAR HEMOGLOBIN 27.4 PG (27.0-31.0); MEAN CORPUSCULAR HGB CONC 32.4 g/dL (33.0-36.5); MEAN CORPUSCULAR VOLUME 84.5 FL (78-98); MEAN PLATELET VOLUME 7.6 FL (7.4-10.4); MONOCYTES # (AUTO) 0.5 X10'3 (0-0.9); MONOCYTES % (AUTO) 6.8 % (2-12); NEUTROPHILS # (AUTO) 4.3 X10'3 (1.8-7.7); NEUTROPHILS % (AUTO) 62.7 % (42-75); PLATELET COUNT 386 X10'3 (140-440); RED BLOOD COUNT 3.56 X10'6 (4.20-5.60); RED CELL DISTRIBUTION WIDTH 19.4 % (11.5-14.5); WHITE BLOOD COUNT 6.9 X10'3 (4.5-11.0)
[2021-03-08 07:08] LABS: ALANINE AMINOTRANSFERASE 12 U/L (12-78); ALBUMIN 2.6 G/DL (3.4-5.0); ALBUMIN/GLOBULIN RATIO 0.5 (1.1-1.5); ALKALINE PHOSPHATASE 116 IU/L (46-116); ANION GAP 7 (8-16); ASPARTATE AMINO TRANSFERASE 15 U/L (10-37); BILIRUBIN,TOTAL 0.3 MG/DL (0.1-1.0); BLOOD UREA NITROGEN 11 MG/DL (7-18); BUN/CREATININE RATIO 10.3 (6.6-38.0); CALCIUM 9.3 MG/DL (8.5-10.1); CHLORIDE 102 MMOL/L (99-107); CREATININE 1.07 MG/DL (0.40-0.90); GLUCOSE 99 MG/DL (70-104); SODIUM 144 MMOL/L (135-145); TOTAL CARBON DIOXIDE 35.1 MMOL/L (24-32); TOTAL PROTEIN 7.9 G/DL (6.4-8.2); eGFR 52 ML/MIN
[2021-03-08] MEDS: predniSONE 1 mg tablet PO SCH (07:15)
[2021-03-08] MEDS: aspirin 81mg tab.chew PO SCH (07:15)
[2021-03-08] MEDS: levoTHYROXINE 25mcg tablet PO SCH (07:15)
[2021-03-08] MEDS: pantoprazole 40mg Tablet.DR PO SCH (07:15)
[2021-03-08] MEDS: nicotine 14mg patch - 24hr TD SCH (07:15)
[2021-03-08] MEDS: furosemide 20MG tablet PO SCH (07:15)
[2021-03-08] MEDS: cholecalciferol (vitamin D3) 1,000 unit (25mcg) tablet PO SCH (07:15)
[2021-03-08] MEDS: duloxetine 30mg CAPSULE.DR PO SCH (07:15)
[2021-03-08] MEDS: K and/or MAG REPLACEMENT MC SCH (08:00)
[2021-03-08] MEDS: budesonide 0.5mg/2ml UD nebule IH SCH (09:44)
[2021-03-08] MEDS: albuterol 2.5 MG/3 ML nebule NEB PRN (09:45)
[2021-03-08 10:00] VITALS: BP 126/57
[2021-03-08] MEDS: cyclobenzaprine 10mg tablet PO PRN (10:12)
--- NOTE | 2021-03-08 13:27 | NUR ---
D/C INSTRUCTIONS GIVEN, QUESTIONS ANSWERED. BELONGINGS GATHERED BY NURSE AND SENT WITH PT. IV D/C'D, CANNULA INTACT, NO COMPLICATIONS. D/C'D PT IN STABLE CONDITION TO HOME IN AMBULANCE ACCOMPANIED BY AMBULANCE PERSONNEL. PT LEFT FLOOR AT 1320
== END 2021-03-08 13:20 | disposition home health service (06) | DRG 493 ==
LOC: ER 09:57 → ED HOLD 13:03 → SUR 3N 20:00 → ORTHO 4S 03-01 18:10
PROVIDERS: ADMIT Family Medicine; ATTEND Family Medicine
PROC: 0QSG04Z Reposition Right Tibia with Internal Fixation Device, Open Approach (ICD-10-PCS; 2021-02-22)
PROC: 3E0T3BZ Introduction of Anesthetic Agent into Peripheral Nerves and Plexi, Percutaneous Approach (ICD-10-PCS; 2021-02-22)
PROC: 3E0T33Z Introduction of Anti-inflammatory into Peripheral Nerves and Plexi, Percutaneous Approach (ICD-10-PCS; 2021-02-22)
PROC: 0QSJ04Z Reposition Right Fibula with Internal Fixation Device, Open Approach (ICD-10-PCS; principal; 2021-02-22 15:40)
PROC: 3E0234Z Introduction of Serum, Toxoid and Vaccine into Muscle, Percutaneous Approach (ICD-10-PCS; 2021-02-24)
PROC: 0W993ZZ Drainage of Right Pleural Cavity, Percutaneous Approach (ICD-10-PCS; 2021-02-24)
DX: S82.851A Displaced trimalleolar fracture of right lower leg, initial encounter for closed fracture (principal); I50.32 Chronic diastolic (congestive) heart failure; J98.11 Atelectasis; I13.0 Hypertensive heart and chronic kidney disease with heart failure and stage 1 through stage 4 chronic kidney disease, or unspecified chronic kidney disease; J91.8 Pleural effusion in other conditions classified elsewhere; E03.9 Hypothyroidism, unspecified; E78.00 Pure hypercholesterolemia, unspecified; E78.5 Hyperlipidemia, unspecified; F32.9 Major depressive disorder, single episode, unspecified; F41.0 Panic disorder [episodic paroxysmal anxiety]; G25.81 Restless legs syndrome; G62.9 Polyneuropathy, unspecified; J43.9 Emphysema, unspecified; G89.29 Other chronic pain; R82.71 Bacteriuria; M54.9 Dorsalgia, unspecified; F17.210 Nicotine dependence, cigarettes, uncomplicated; E66.01 Morbid (severe) obesity due to excess calories; N18.9 Chronic kidney disease, unspecified; L89.329 Pressure ulcer of left buttock, unspecified stage; D64.9 Anemia, unspecified; M81.0 Age-related osteoporosis without current pathological fracture; R29.6 Repeated falls; W18.39XA Other fall on same level, initial encounter; S93.402A Sprain of unspecified ligament of left ankle, initial encounter; Z79.51 Long term (current) use of inhaled steroids; Z79.890 Hormone replacement therapy; Z80.1 Family history of malignant neoplasm of trachea, bronchus and lung; Z85.3 Personal history of malignant neoplasm of breast; Z90.710 Acquired absence of both cervix and uterus; Z99.3 Dependence on wheelchair; Z23 Encounter for immunization; Z68.36 Body mass index [BMI] 36.0-36.9, adult; Z88.0 Allergy status to penicillin; Z88.5 Allergy status to narcotic agent; Z88.2 Allergy status to sulfonamides; Z90.49 Acquired absence of other specified parts of digestive tract; Z79.899 Other long term (current) drug therapy; Z71.6 Tobacco abuse counseling; Z79.82 Long term (current) use of aspirin; Y93.89 Activity, other specified; Y92.89 Other specified places as the place of occurrence of the external cause; Y99.8 Other external cause status
CPT/HCPCS: 32555; 36415; 71045; 73610; 80048; 80053; 81001; 82945; 82948; 83615; 83735; 83880; 83986; 84132; 84157; 84443; 85008; 85025; 85610; 87070; 87077; 87081; 87088; 87186; 89051; 90732; 93005; 94640; 94760; 97110; 97112; 97162; 97530; 97535; 99285; A4215; A4618; A6449; A7000; C1713; G0378; J0330; J0735; J1170; J1650; J2175; J2250; J2405; J2795; J3010; J3370; J7120; J7512; J7626

== ENCOUNTER 2021-05-07 07:29 | Emergency (ER) | payer MEDICARE, MEDICAID ==
[~2021-05-07] VITALS: Ht 170.2 cm; Wt 100.0 kg
[~2021-05-07 07:29] MED LIST changes: +ALBU17AE26 IH; +FLUT100D IH; +IPRA3AMP9 IH; +LOP12.5T PO; +MELA10TA PO; +NICO-687 TOP; +ROPI1TAB6 PO; -ROPI3TAB PO
[2021-05-07] MEDS ORDERED: cefepime 1GM/NS ADD-VANTAGE 100 ML IV ONE (07:50)
[2021-05-07] MEDS ORDERED: vancomycin/NS 1 GM ADD-VANTAGE 250 ML IV ONE (07:50)
[2021-05-07] MEDS ORDERED: cefepime 1GM in D5W 50mL 50 ML IV ONE (07:54)
[2021-05-07 08:37] LABS: BASOPHILS % (AUTO) 0.6 % (0-1); EOSINOPHILS # (AUTO) 0.3 X10'3 (0-0.9); EOSINOPHILS % (AUTO) 3.4 % (0-6); HEMATOCRIT 28.1 % (35.0-45.0); HEMOGLOBIN 9.3 g/dl (12.0-16.0); LYMPHOCYTES # (AUTO) 2.1 X10'3 (1.1-4.8); LYMPHOCYTES % (AUTO) 27.6 % (21-51); MEAN CORPUSCULAR HEMOGLOBIN 29.1 PG (27.0-31.0); MEAN CORPUSCULAR HGB CONC 33.1 g/dL (33.0-36.5); MEAN CORPUSCULAR VOLUME 87.9 FL (78-98); MEAN PLATELET VOLUME 8.2 FL (7.4-10.4); MONOCYTES # (AUTO) 0.4 X10'3 (0-0.9); MONOCYTES % (AUTO) 5.6 % (2-12); NEUTROPHILS # (AUTO) 4.8 X10'3 (1.8-7.7); NEUTROPHILS % (AUTO) 62.8 % (42-75); PLATELET COUNT 284 X10'3 (140-440); RED BLOOD COUNT 3.19 X10'6 (4.20-5.60); RED CELL DISTRIBUTION WIDTH 18.3 % (11.5-14.5); WHITE BLOOD COUNT 7.6 X10'3 (4.5-11.0)
[2021-05-07 08:53] LABS: ALANINE AMINOTRANSFERASE 16 U/L (12-78); ALBUMIN 2.3 G/DL (3.4-5.0); ALBUMIN/GLOBULIN RATIO 0.4 (1.1-1.5); ALKALINE PHOSPHATASE 122 IU/L (46-116); ANION GAP 3 (8-16); ASPARTATE AMINO TRANSFERASE 17 U/L (10-37); BILIRUBIN,TOTAL 0.2 MG/DL (0.1-1.0); BLOOD UREA NITROGEN 12 MG/DL (7-18); BUN/CREATININE RATIO 9.7 (6.6-38.0); CALCIUM 8.6 MG/DL (8.5-10.1); CHLORIDE 98 MMOL/L (99-107); CREATININE 1.24 MG/DL (0.40-0.90); GLUCOSE 105 MG/DL (70-104); POTASSIUM 3.6 MMOL/L (3.5-5.1); SODIUM 134 MMOL/L (135-145); TOTAL CARBON DIOXIDE 32.7 MMOL/L (24-32); TOTAL PROTEIN 8.3 G/DL (6.4-8.2); eGFR 44 ML/MIN
[2021-05-07] MEDS ORDERED: CEPH-585 PO (09:24)
[2021-05-07 11:17] VITALS: BP 129/65
== END 2021-05-07 11:56 | disposition home or self-care (01) ==
LOC: ER 07:30
DX: T81.49XA Infection following a procedure, other surgical site, initial encounter (principal); I11.0 Hypertensive heart disease with heart failure; I50.9 Heart failure, unspecified; E78.00 Pure hypercholesterolemia, unspecified; I10 Essential (primary) hypertension; J43.9 Emphysema, unspecified; G89.29 Other chronic pain; Z85.3 Personal history of malignant neoplasm of breast; G62.9 Polyneuropathy, unspecified; Z86.2 Personal history of diseases of the blood and blood-forming organs and certain disorders involving the immune mechanism; F17.200 Nicotine dependence, unspecified, uncomplicated; Z87.440 Personal history of urinary (tract) infections; Z90.49 Acquired absence of other specified parts of digestive tract; Z90.710 Acquired absence of both cervix and uterus; Z88.0 Allergy status to penicillin; Z88.2 Allergy status to sulfonamides; Z88.8 Allergy status to other drugs, medicaments and biological substances; Z79.82 Long term (current) use of aspirin; Z79.899 Other long term (current) drug therapy; Y92.89 Other specified places as the place of occurrence of the external cause
CPT/HCPCS: 36415; 80053; 84145; 85025; 85651; 86140; 87070; 96365; 96367; 99284; J0692; J3370

== ENCOUNTER 2021-06-03 07:49 | Day surgery (SDC) | payer MEDICARE, MEDICAID ==
[~2021-06-03] VITALS: Ht 170.2 cm; Wt 102.3 kg
[~2021-06-03 07:49] MED LIST changes: +CEPH-585 PO
[2021-06-03 08:25] VITALS: BP 100/59
[2021-06-03 08:45] VITALS: BP 100/59
[2021-06-03] MEDS ORDERED: LIDOcaine 1% 30ml preserv. free vial IJ STA ×2 (08:48→08:53)
[2021-06-03 09:35] VITALS: BP 100/59
[2021-06-14] MEDS ORDERED: OXYC-658 PO (11:42)
== END 2021-06-03 09:35 | disposition home or self-care (01) ==
LOC: SSTAY O 07:49
PROVIDERS: ATTEND Radiology Vascular & Interventional Radiology
DX: J90 Pleural effusion, not elsewhere classified (principal); Z53.8 Procedure and treatment not carried out for other reasons; R06.02 Shortness of breath; I11.0 Hypertensive heart disease with heart failure; I50.30 Unspecified diastolic (congestive) heart failure; J44.9 Chronic obstructive pulmonary disease, unspecified; E78.5 Hyperlipidemia, unspecified; G89.29 Other chronic pain; F41.9 Anxiety disorder, unspecified; F32.9 Major depressive disorder, single episode, unspecified; Z85.3 Personal history of malignant neoplasm of breast; Z90.49 Acquired absence of other specified parts of digestive tract; Z90.710 Acquired absence of both cervix and uterus; Z98.890 Other specified postprocedural states; Z90.11 Acquired absence of right breast and nipple; Z88.0 Allergy status to penicillin; Z88.2 Allergy status to sulfonamides; Z88.5 Allergy status to narcotic agent; Z88.8 Allergy status to other drugs, medicaments and biological substances; Z79.899 Other long term (current) drug therapy; Z85.118 Personal history of other malignant neoplasm of bronchus and lung
CPT/HCPCS: 76604; J2001

== ENCOUNTER 2021-08-18 10:51 | Inpatient (IN) | payer MEDICARE, MEDICAID ==
[~2021-08-18] VITALS: Ht 170.2 cm; Wt 104.2 kg
[~2021-08-18 10:51] MED LIST changes: -CEPH-585 PO; -HYDR-3972 PO; -LOP12.5T PO; +OXYC-658 PO; -PRED1TAB PO
[2021-08-18] MEDS ORDERED: normal saline 1000ML IV soln IVB ONE (11:40)
[2021-08-18 11:55] LABS: BASOPHILS # (AUTO) 0.1 X10'3 (0-0.2); BASOPHILS % (AUTO) 1.2 % (0-1); EOSINOPHILS # (AUTO) 0.1 X10'3 (0-0.9); EOSINOPHILS % (AUTO) 1.8 % (0-6); HEMOGLOBIN 9.4 g/dl (12.0-16.0); LYMPHOCYTES # (AUTO) 2.2 X10'3 (1.1-4.8); LYMPHOCYTES % (AUTO) 26.6 % (21-51); MEAN CORPUSCULAR HEMOGLOBIN 31.6 PG (27.0-31.0); MEAN CORPUSCULAR HGB CONC 32.4 g/dL (33.0-36.5); MEAN CORPUSCULAR VOLUME 97.6 FL (78-98); MEAN PLATELET VOLUME 9.8 FL (7.4-10.4); MONOCYTES # (AUTO) 0.4 X10'3 (0-0.9); MONOCYTES % (AUTO) 4.7 % (2-12); NEUTROPHILS # (AUTO) 5.4 X10'3 (1.8-7.7); NEUTROPHILS % (AUTO) 65.7 % (42-75); PLATELET COUNT 212 X10'3 (140-440); RED BLOOD COUNT 2.97 X10'6 (4.20-5.60); RED CELL DISTRIBUTION WIDTH 17.6 % (11.5-14.5); WHITE BLOOD COUNT 8.2 X10'3 (4.5-11.0)
[2021-08-18 12:02] LABS: ALANINE AMINOTRANSFERASE 10 U/L (12-78); ALBUMIN 2.6 G/DL (3.4-5.0); ALBUMIN/GLOBULIN RATIO 0.5 (1.1-1.5); ALKALINE PHOSPHATASE 109 IU/L (46-116); ANION GAP 9 (8-16); ASPARTATE AMINO TRANSFERASE 13 U/L (10-37); BILIRUBIN,TOTAL 0.3 MG/DL (0.1-1.0); BLOOD UREA NITROGEN 15 MG/DL (7-18); BUN/CREATININE RATIO 8.7 (6.6-38.0); CALCIUM 9.9 MG/DL (8.5-10.1); CHLORIDE 94 MMOL/L (99-107); CREATININE 1.72 MG/DL (0.40-0.90); GLUCOSE 134 MG/DL (70-104); POTASSIUM 3.7 MMOL/L (3.5-5.1); SODIUM 135 MMOL/L (135-145); TOTAL CARBON DIOXIDE 32.3 MMOL/L (24-32); TOTAL PROTEIN 8.3 G/DL (6.4-8.2); eGFR 30 ML/MIN
[2021-08-18] MEDS ORDERED: CefTRIAXone 2gm/D5W 50ml BAG 50 ML IV ONE (14:25)
[2021-08-18 15:56] LABS: MAGNESIUM 1.5 MG/DL (1.5-2.4)
[2021-08-18] MEDS ORDERED: oxyCODONE IR 5mg (immed. release) tablet PO ONE (16:05)
[2021-08-18 17:33] LABS: CLARITY,URINE CLOUDY (Clear); COLOR,URINE YELLOW (Yellow); GLUCOSE, URINE NEGATIVE (Neg); KETONES,URINE NEGATIVE (Neg); LEUKOCYTE ESTERASE ,URINE LARGE (Neg); NITRITES, URINE POSITIVE (Neg); OCCULT BLOOD,URINE SMALL (Neg); PROTEIN,URINE NEGATIVE (Neg); UROBILINOGEN,URINE 0.2 E.U/dL (0.2-1.0)
[2021-08-18] MEDS ORDERED: ondansetron/PF 4mg/2ml inj IV PRN (17:35)
[2021-08-18] MEDS ORDERED: potassium Cl 20 mEq SR tablet PO PRN (17:35)
[2021-08-18] MEDS ORDERED: magnesium 2GM in 50ml NS 50 ML IV PRN (17:35)
[2021-08-18] MEDS ORDERED: magnesium hydroxide 30ml (MOM) UD suspension PO PRN (17:35)
[2021-08-18] MEDS ORDERED: magnesium Cl slow-release 64mg tablet PO PRN (17:35)
[2021-08-18] MEDS ORDERED: acetaminophen 325mg tablet PO PRN (17:35)
[2021-08-18] MEDS ORDERED: magnesium 4gm in 100ml NS 100 ML IV PRN (17:35)
[2021-08-18] MEDS ORDERED: mag hydrox/Alum hydrox/simeth 30ml oral suspension PO PRN (17:35)
[2021-08-18] MEDS: normal saline 1000ml 1,000 ML IV SCH ×2 (17:35→23:18)
[2021-08-18] MEDS ORDERED: potassium CL 10mEq/100ml bag 100 ML IV PRN (17:35)
[2021-08-18 17:52] LABS: UA COLLECTION TYPE NON-SPECIFIED
[2021-08-18 17:53] LABS: BACTERIA,URINE 2+ /HPF (Neg); SQUAMOUS EPITHELIAL CELL,UR MODERATE /LPF (FEW); WBC,URINE 30-50 /HPF (0-4)
[2021-08-18 17:54] LABS: WBC CLUMPS,URINE FEW /HPF (NEGATIVE)
[2021-08-18 17:59] LABS: POTASSIUM 3.4 MMOL/L (3.5-5.1)
[2021-08-18] MEDS ORDERED: OXYC-481 PO (18:03)
[2021-08-18] MEDS ORDERED: docusate sod 100mg capsule PO PRN (18:20)
[2021-08-18] MEDS ORDERED: cyclobenzaprine 10mg tablet PO PRN (18:20)
[2021-08-18] MEDS ORDERED: ipratropium/albuterol 3ml nebule IH PRN (18:20)
[2021-08-18] MEDS: oxyCODONE IR 5mg (immed. release) tablet PO SCH (19:51)
[2021-08-18] MEDS: potassium Cl 20 mEq SR tablet PO SCH (19:53)
[2021-08-18] MEDS: furosemide 20MG tablet PO SCH (19:56)
[2021-08-18] MEDS: cholecalciferol (vitamin D3) 1,000 unit (25mcg) tablet PO SCH (19:56)
[2021-08-18] MEDS: docusate sod 100mg capsule PO SCH (20:00)
[2021-08-18] MEDS: ciprofloxacin lact 400MG/200ML 200 ML IV SCH (20:03)
[2021-08-18] MEDS: K and/or MAG REPLACEMENT MC SCH (20:17)
[2021-08-18] MEDS ORDERED: non-formulary drug (Melatonin 1 TAB) PO SCH (21:00)
[2021-08-18] MEDS: ABEMACICLIB PO SCH (21:00)
--- NOTE | 2021-08-18 21:00 | NUR ---
Patient in room PCU 3017. I have received report from LYDIA RENNER RN and had the opportunity to ask questions and assume patient care.
--- NOTE | 2021-08-18 21:27 | NUR ---
Patient in room ED 11. I have received report from LYDIA HILLMAN and had the opportunity to ask questions and assume patient care.
[2021-08-18] MEDS: pregabalin 75mg capsule PO SCH (22:09)
[2021-08-18] MEDS: ROPINIRole 1mg tablet PO SCH (22:10)
--- NOTE | 2021-08-18 22:11 | NUR ---
pt home med can not be filled by pharmacy. patient has agreed to have her bring her home med to the hospital tomorrow.
[2021-08-18 23:00] VITALS: BP 124/67
[2021-08-18] MEDS: doxycycline inj 100 MG in normal saline 100ml IV soln 100 ML IV SCH (23:17)
[2021-08-18] MEDS: budesonide 0.5mg/2ml UD nebule IH SCH (23:52)
[2021-08-19] VITALS (7 sets, daily range): BP systolic 100–135; BP diastolic 55–78
[2021-08-19] MEDS: HYDROcodone/acetaminophen 5mg/325mg tablet PO PRN ×4 (02:17→22:11)
--- NOTE | 2021-08-19 04:00 | NUR ---
REQUESTED ANXIETY MED PRN.CHOLMES
[2021-08-19] MEDS ORDERED: hydrOXYzine 10 MG tablet PO PRN (04:05)
[2021-08-19] MEDS ORDERED: hydrOXYzine 25 MG tablet PO PRN (04:15)
--- NOTE | 2021-08-19 06:23 | NUR ---
Patient in room PCU 3017. I have received report from Alice HILLMAN and had the opportunity to ask questions and assume patient care.
[2021-08-19 06:35] LABS: BASOPHILS # (AUTO) 0.1 X10'3 (0-0.2); BASOPHILS % (AUTO) 1.3 % (0-1); EOSINOPHILS # (AUTO) 0.1 X10'3 (0-0.9); EOSINOPHILS % (AUTO) 2.1 % (0-6); HEMATOCRIT 23.9 % (35.0-45.0); HEMOGLOBIN 7.9 g/dl (12.0-16.0); LYMPHOCYTES # (AUTO) 1.4 X10'3 (1.1-4.8); LYMPHOCYTES % (AUTO) 20.8 % (21-51); MEAN CORPUSCULAR HEMOGLOBIN 31.7 PG (27.0-31.0); MEAN CORPUSCULAR HGB CONC 33.1 g/dL (33.0-36.5); MEAN CORPUSCULAR VOLUME 95.8 FL (78-98); MEAN PLATELET VOLUME 9.3 FL (7.4-10.4); MONOCYTES # (AUTO) 0.3 X10'3 (0-0.9); NEUTROPHILS # (AUTO) 4.7 X10'3 (1.8-7.7); NEUTROPHILS % (AUTO) 70.8 % (42-75); PLATELET COUNT 132 X10'3 (140-440); RED BLOOD COUNT 2.49 X10'6 (4.20-5.60); RED CELL DISTRIBUTION WIDTH 17.3 % (11.5-14.5); WHITE BLOOD COUNT 6.6 X10'3 (4.5-11.0)
[2021-08-19 07:00] LABS: ALANINE AMINOTRANSFERASE 8 U/L (12-78); ALBUMIN 2.4 G/DL (3.4-5.0); ALBUMIN/GLOBULIN RATIO 0.5 (1.1-1.5); ALKALINE PHOSPHATASE 99 IU/L (46-116); ANION GAP 7 (8-16); ASPARTATE AMINO TRANSFERASE 23 U/L (10-37); BILIRUBIN,TOTAL 0.3 MG/DL (0.1-1.0); BLOOD UREA NITROGEN 13 MG/DL (7-18); CALCIUM 8.9 MG/DL (8.5-10.1); CHLORIDE 102 MMOL/L (99-107); CREATININE 1.45 MG/DL (0.40-0.90); GLUCOSE 92 MG/DL (70-104); POTASSIUM 3.2 MMOL/L (3.5-5.1); SODIUM 140 MMOL/L (135-145); TOTAL CARBON DIOXIDE 31.1 MMOL/L (24-32); TOTAL PROTEIN 7.1 G/DL (6.4-8.2); eGFR 36 ML/MIN
[2021-08-19] MEDS: oxyCODONE IR 5mg (immed. release) tablet PO SCH ×2 (07:05→19:18)
[2021-08-19] MEDS: budesonide 0.5mg/2ml UD nebule IH SCH ×2 (07:09→20:23)
[2021-08-19] MEDS: albuterol 2.5 MG/3 ML nebule NEB PRN (07:09)
[2021-08-19] MEDS: ABEMACICLIB PO SCH ×3 (08:00→20:47)
[2021-08-19] MEDS: K and/or MAG REPLACEMENT MC SCH ×2 (08:00→19:19)
[2021-08-19] MEDS ORDERED: CefTRIAXone 2gm/D5W 50ml BAG 50 ML IV SCH (08:00)
[2021-08-19] MEDS: cholecalciferol (vitamin D3) 1,000 unit (25mcg) tablet PO SCH ×2 (08:35→19:17)
[2021-08-19] MEDS: levoTHYROXINE 25mcg tablet PO SCH (08:35)
[2021-08-19] MEDS: pregabalin 75mg capsule PO SCH ×2 (08:36→20:48)
[2021-08-19] MEDS: pantoprazole 40mg Tablet.DR PO SCH (08:36)
[2021-08-19] MEDS: furosemide 20MG tablet PO SCH ×2 (08:36→19:18)
[2021-08-19] MEDS: duloxetine 30mg CAPSULE.DR PO SCH (08:36)
[2021-08-19] MEDS: potassium Cl 20 mEq SR tablet PO SCH ×2 (08:37→19:18)
[2021-08-19] MEDS: docusate sod 100mg capsule PO SCH ×2 (08:37→19:17)
[2021-08-19] MEDS: aspirin 81mg tab.chew PO SCH (08:37)
[2021-08-19] MEDS: anastrozole 1 MG tablet PO SCH (08:38)
[2021-08-19] MEDS: enoxaparin 40mg/0.4ml syringe SUBCUT SCH (09:18)
[2021-08-19] MEDS: ciprofloxacin lact 400MG/200ML 200 ML IV SCH ×2 (10:31→20:51)
[2021-08-19] MEDS: potassium Cl 20 mEq SR tablet PO PRN ×2 (10:57→15:07)
[2021-08-19] MEDS: doxycycline inj 100 MG in normal saline 100ml IV soln 100 ML IV SCH ×2 (12:50→19:16)
[2021-08-19] MEDS: normal saline 1000ml 1,000 ML IV SCH ×2 (13:35→23:35)
--- NOTE | 2021-08-19 15:18 | NUR ---
Spoke with Pt concerning the need to rotate her and put new dry flows under her, but Pt is resistive to care. Pt states "leave me alone, I don't want to be moved or touched"! Pt educated on the importance of repositioning and that skin breakdown can happen if your not repositioned. Pt again states "I don't want to be moved or touched"!
--- NOTE | 2021-08-19 18:05 | NUR ---
Problems reprioritized. Patient report given, questions answered & plan of care reviewed with Dayana HILLMAN.
[2021-08-19] MEDS: lactobacillus rhamnosus 10,000 MMU CELLS/CAPSULE PO SCH (19:17)
[2021-08-19] MEDS: ROPINIRole 1mg tablet PO SCH (20:47)
[2021-08-20 01:51] VITALS: BP 106/45
[2021-08-20 06:00] VITALS: BP_SYST 92; BP_DIAS 56; BP_DIAS 63
[2021-08-20] MEDS: HYDROcodone/acetaminophen 5mg/325mg tablet PO PRN ×4 (06:48→13:11)
[2021-08-20 07:34] LABS: BASOPHILS # (AUTO) 0.1 X10'3 (0-0.2); BASOPHILS % (AUTO) 0.7 % (0-1); EOSINOPHILS # (AUTO) 0.1 X10'3 (0-0.9); EOSINOPHILS % (AUTO) 0.7 % (0-6); HEMATOCRIT 23.2 % (35.0-45.0); HEMOGLOBIN 7.7 g/dl (12.0-16.0); LYMPHOCYTES # (AUTO) 1.2 X10'3 (1.1-4.8); LYMPHOCYTES % (AUTO) 15.6 % (21-51); MEAN CORPUSCULAR HEMOGLOBIN 31.5 PG (27.0-31.0); MEAN CORPUSCULAR HGB CONC 33.1 g/dL (33.0-36.5); MEAN CORPUSCULAR VOLUME 95.2 FL (78-98); MEAN PLATELET VOLUME 9.7 FL (7.4-10.4); MONOCYTES # (AUTO) 0.3 X10'3 (0-0.9); NEUTROPHILS # (AUTO) 6.3 X10'3 (1.8-7.7); PLATELET COUNT 130 X10'3 (140-440); RED BLOOD COUNT 2.43 X10'6 (4.20-5.60); RED CELL DISTRIBUTION WIDTH 17.2 % (11.5-14.5)
[2021-08-20] MEDS: oxyCODONE IR 5mg (immed. release) tablet PO SCH ×2 (07:35→19:13)
[2021-08-20] MEDS: pantoprazole 40mg Tablet.DR PO SCH (07:35)
[2021-08-20] MEDS: levoTHYROXINE 25mcg tablet PO SCH (07:35)
[2021-08-20] MEDS: lactobacillus rhamnosus 10,000 MMU CELLS/CAPSULE PO SCH ×2 (07:36→19:13)
[2021-08-20] MEDS: aspirin 81mg tab.chew PO SCH (07:36)
[2021-08-20] MEDS: cholecalciferol (vitamin D3) 1,000 unit (25mcg) tablet PO SCH ×2 (07:36→19:12)
[2021-08-20] MEDS: duloxetine 30mg CAPSULE.DR PO SCH (07:36)
[2021-08-20] MEDS: docusate sod 100mg capsule PO SCH ×2 (07:39→19:14)
[2021-08-20] MEDS: ABEMACICLIB PO SCH ×3 (07:39→20:38)
[2021-08-20] MEDS: ciprofloxacin lact 400MG/200ML 200 ML IV SCH ×2 (07:41→20:00)
[2021-08-20] MEDS: doxycycline inj 100 MG in normal saline 100ml IV soln 100 ML IV SCH ×2 (07:47→20:00)
[2021-08-20] MEDS: anastrozole 1 MG tablet PO SCH (07:48)
[2021-08-20] MEDS: pregabalin 75mg capsule PO SCH ×2 (08:00→20:38)
[2021-08-20] MEDS: enoxaparin 40mg/0.4ml syringe SUBCUT SCH (08:00)
[2021-08-20] MEDS: K and/or MAG REPLACEMENT MC SCH ×2 (08:00→19:16)
[2021-08-20] MEDS: furosemide 20MG tablet PO SCH ×2 (08:00→19:15)
[2021-08-20] MEDS: potassium Cl 20 mEq SR tablet PO SCH ×2 (08:01→19:14)
[2021-08-20 08:02] LABS: ALANINE AMINOTRANSFERASE 8 U/L (12-78); ALBUMIN 2.4 G/DL (3.4-5.0); ALBUMIN/GLOBULIN RATIO 0.5 (1.1-1.5); ALKALINE PHOSPHATASE 90 IU/L (46-116); ANION GAP 7 (8-16); ASPARTATE AMINO TRANSFERASE 20 U/L (10-37); BILIRUBIN,TOTAL 0.3 MG/DL (0.1-1.0); BLOOD UREA NITROGEN 12 MG/DL (7-18); BUN/CREATININE RATIO 8.9 (6.6-38.0); CALCIUM 8.8 MG/DL (8.5-10.1); CHLORIDE 101 MMOL/L (99-107); CREATININE 1.35 MG/DL (0.40-0.90); GLUCOSE 110 MG/DL (70-104); SODIUM 138 MMOL/L (135-145); TOTAL CARBON DIOXIDE 30.4 MMOL/L (24-32); TOTAL PROTEIN 6.8 G/DL (6.4-8.2); eGFR 39 ML/MIN
[2021-08-20] MEDS: normal saline 1000ml 1,000 ML IV SCH ×2 (09:35→19:35)
[2021-08-20] MEDS: budesonide 0.5mg/2ml UD nebule IH SCH ×2 (10:20→21:09)
[2021-08-20] MEDS: albuterol 2.5 MG/3 ML nebule NEB PRN (10:22)
[2021-08-20 11:00] VITALS: BP_SYST 106; BP_SYST 112; BP_DIAS 45; BP_DIAS 51
--- NOTE | 2021-08-20 11:07 | NUR ---
Malnutrition consult: Pt reports wt loss with decreased appetite per malnutrition risk screen with RN. Current documented wt is stable with scaled wt hx in EMR of 102 kg taken 06/08/21 with a standing scale. Pt currently on a heart healthy diet and eating well with mostly 75% PO intake. Pt with no documented significant decrease in muscle strength or edema. Pt currently lacks a minimum of two criteria for malnutrition. Will continue to follow. Addendum: 08/20/21 at [address] Amended: Links added.
--- NOTE | 2021-08-20 12:40 | NUR ---
Reported seizing from nurse Aide. Patient was assessed and no signs of seizure activity noted. Patient complain of right leg spasm and was able to recall the events.Will Continue to monitor patient.
[2021-08-20 15:00] VITALS: BP_SYST 106; BP_SYST 99; BP_DIAS 45; BP_DIAS 63
[2021-08-20] MEDS: ROPINIRole 1mg tablet PO SCH (20:38)
[2021-08-20 22:00] VITALS: BP 131/55
[2021-08-21 02:00] VITALS: BP 154/67
[2021-08-21] MEDS: HYDROcodone/acetaminophen 5mg/325mg tablet PO PRN (02:56)
--- NOTE | 2021-08-21 06:40 | NUR ---
Problems reprioritized. Patient report given, questions answered & plan of care reviewed with Malaika.
[2021-08-21 07:06] VITALS: BP 109/59
[2021-08-21 07:11] LABS: HEMATOCRIT 23.9 % (35.0-45.0); HEMOGLOBIN 7.9 g/dl (12.0-16.0); MEAN CORPUSCULAR HEMOGLOBIN 31.7 PG (27.0-31.0); MEAN PLATELET VOLUME 9.9 FL (7.4-10.4); PLATELET COUNT 136 X10'3 (140-440); RED BLOOD COUNT 2.49 X10'6 (4.20-5.60); RED CELL DISTRIBUTION WIDTH 17.9 % (11.5-14.5); WHITE BLOOD COUNT 6.9 X10'3 (4.5-11.0)
[2021-08-21 07:16] LABS: ANISOCYTOSIS 1+; PLATELET ESTIMATE DECREASED; POLYCHROMASIA 1+; ROULEAUX 1+; TOTAL CELLS COUNTED 100
[2021-08-21 07:17] LABS: LARGE PLATELETS FEW
[2021-08-21 07:21] LABS: ALANINE AMINOTRANSFERASE 9 U/L (12-78); ALBUMIN 2.4 G/DL (3.4-5.0); ALBUMIN/GLOBULIN RATIO 0.5 (1.1-1.5); ALKALINE PHOSPHATASE 93 IU/L (46-116); ANION GAP 10 (8-16); ASPARTATE AMINO TRANSFERASE 25 U/L (10-37); BILIRUBIN,TOTAL 0.3 MG/DL (0.1-1.0); BLOOD UREA NITROGEN 11 MG/DL (7-18); BUN/CREATININE RATIO 8.7 (6.6-38.0); CALCIUM 8.8 MG/DL (8.5-10.1); CHLORIDE 100 MMOL/L (99-107); CREATININE 1.26 MG/DL (0.40-0.90); GLUCOSE 100 MG/DL (70-104); POTASSIUM 3.6 MMOL/L (3.5-5.1); SODIUM 136 MMOL/L (135-145); TOTAL CARBON DIOXIDE 26.4 MMOL/L (24-32); TOTAL PROTEIN 6.8 G/DL (6.4-8.2); eGFR 43 ML/MIN
[2021-08-21] MEDS: albuterol 2.5 MG/3 ML nebule NEB PRN (07:52)
[2021-08-21] MEDS: budesonide 0.5mg/2ml UD nebule IH SCH (07:58)
[2021-08-21] MEDS: ABEMACICLIB PO SCH ×2 (08:05→12:47)
[2021-08-21] MEDS: doxycycline inj 100 MG in normal saline 100ml IV soln 100 ML IV SCH (08:06)
[2021-08-21] MEDS: ciprofloxacin lact 400MG/200ML 200 ML IV SCH (08:06)
[2021-08-21] MEDS: cholecalciferol (vitamin D3) 1,000 unit (25mcg) tablet PO SCH (08:09)
[2021-08-21] MEDS: duloxetine 30mg CAPSULE.DR PO SCH (08:09)
[2021-08-21] MEDS: pregabalin 75mg capsule PO SCH (08:10)
[2021-08-21] MEDS: docusate sod 100mg capsule PO SCH (08:10)
[2021-08-21] MEDS: oxyCODONE IR 5mg (immed. release) tablet PO SCH (08:10)
[2021-08-21] MEDS: aspirin 81mg tab.chew PO SCH (08:10)
[2021-08-21] MEDS: lactobacillus rhamnosus 10,000 MMU CELLS/CAPSULE PO SCH (08:10)
--- NOTE | 2021-08-21 09:26 | NUR ---
Initial: Pt admitted w/ PNA, syncopal episode, and chronic wound to R foot per EMR. Per WOC pt w/ full thickness, non healing surgical wound to R foot w/ tendon visible. Pt currently on Heart Healthy diet w/ avg intake 42% x 4 meals not meeting needs. Pt could benefit from Manuel smoothies BID to assist w/ wound healing at this time, will monitor need for further ONS pending acceptance and further PO trends. No BM documented yet, receiving routine colace. Will continue to monitor. Recs: 1. Continue Heart Healthy diet as tolerated 2. Manuel Smoothies BIDBD; pending MD verification 3. Monitor need for additional ONS 4. Bowel care per rx 5. Scaled wt this admit Addendum: 08/21/21 at [address] Amended: Links added.
[2021-08-21] MEDS ORDERED: CIPR-202 PO (10:22)
[2021-08-21] MEDS ORDERED: DOXY100C2 PO (10:22)
[2021-08-21 11:00] VITALS: BP 139/67
[2021-08-21] MEDS ORDERED: JUVEN Smoothie Arginine/Glut./Ca2+Bmb (Juven 19.3pkt) 240ml cup PO SCH (17:30)
== END 2021-08-21 13:55 | disposition home health service (06) | DRG 314 ==
LOC: ER 10:51 → ED HOLD 17:36 → PCU 3S 22:28
PROVIDERS: ADMIT Family Medicine; ATTEND Family Medicine
DX: I95.9 Hypotension, unspecified (principal); J18.9 Pneumonia, unspecified organism; I50.32 Chronic diastolic (congestive) heart failure; J96.10 Chronic respiratory failure, unspecified whether with hypoxia or hypercapnia; N30.00 Acute cystitis without hematuria; Z20.822 Contact with and (suspected) exposure to COVID-19; D64.9 Anemia, unspecified; E78.00 Pure hypercholesterolemia, unspecified; E78.5 Hyperlipidemia, unspecified; F17.210 Nicotine dependence, cigarettes, uncomplicated; F32.A Depression, unspecified; F41.9 Anxiety disorder, unspecified; G62.9 Polyneuropathy, unspecified; G89.29 Other chronic pain; M54.9 Dorsalgia, unspecified; F41.0 Panic disorder [episodic paroxysmal anxiety]; B96.1 Klebsiella pneumoniae [K. pneumoniae] as the cause of diseases classified elsewhere; S80.921A Unspecified superficial injury of right lower leg, initial encounter; X58.XXXA Exposure to other specified factors, initial encounter; I11.0 Hypertensive heart disease with heart failure; J43.9 Emphysema, unspecified; Z85.3 Personal history of malignant neoplasm of breast; Z90.11 Acquired absence of right breast and nipple; Z90.710 Acquired absence of both cervix and uterus; Z88.0 Allergy status to penicillin; Z88.5 Allergy status to narcotic agent; Z88.2 Allergy status to sulfonamides; Z90.49 Acquired absence of other specified parts of digestive tract; Z80.1 Family history of malignant neoplasm of trachea, bronchus and lung; Z71.6 Tobacco abuse counseling; Y93.89 Activity, other specified; Y92.89 Other specified places as the place of occurrence of the external cause; Y99.8 Other external cause status
CPT/HCPCS: 36000; 36415; 71045; 76937; 80053; 81001; 83605; 83735; 83880; 84132; 84145; 84484; 85007; 85025; 85610; 87040; 87077; 87081; 87088; 87186; 87635; 93005; 93306; 94640; 94760; 96360; 96361; 99285; C9803; G0378; J0696; J0744; J1650; J2405; J3490; J7030; Q0177